=== PATIENT | female | born 1970 | race Caucasian/White ===

== ENCOUNTER → 2016-04-08 | Outpatient (CLI) | payer BC ==
[~2016-04-08] MED LIST: ADVAIR 250/5028 PUFF IN; ADVAIR DISK28 PUFFS IN; ALBUTEROL-200 PUFFS/ IH; ALBUTEROL2.5 MG/NEB IN; ALDACTONE 25MG25 MG PO; ATIVAN GENERIC0.5 MG PO; AZOR 10 MG-40 M1 TAB PO; BACLOFEN20 MG PO; BACTRIM DS 8001 TAB PO; BISOPROLOL 5MG T5 MG PO; CIPRO 250MG TA250 MG PO; CIPRO 500MG TA500 MG PO; CIPROFLOXACIN500 MG PO; DAYQUIL COLD/FL1 SGL PO; DOXYCYCLINE MO100 MG PO; EXFORGE 5 MG-161 TAB PO; EXFORGE 5 MG-321 TAB PO; HYDROCHLOROTH12.5 M1 PO; HYDROCHLOROTHIA25 M1 PO; IBUPROFEN800 MG PO; IPRATROPIUM BROM3 M1 IH; KEFLEX 500MG.500 MG PO; LISINOPRIL 10MG10 MG PO; LISINOPRIL40 MG PO; LORTAB 5/500 501 TAB PO; MEDROL 4MG. DOSE4 MG PO; NAPROSYN 500MG500 MG PO; NAPROXEN DELAY500 MG PO; NAPROXEN SODIU220 MG PO; PHENERGAN 25MG.25 M1 PO; PHENERGAN VC +120 ML PO; POTASSIUM CHLO20 ME2 PO; PREDNISONE 10MG10 MG PO; PREDNISONE 20MG20 MG PO; PREDNISONE50 MG PO; RANITIDINE75 MG PO; ROBITUSSIN DM S10 ML NG; ROBITUSSIN100 MG/5 M PO; RT-ACCUNEB S3 ML/AMP IN; SERTRALINE 50MG50 MG PO; TESSALON PERLE100 MG PO; TRAMADOL 50MG T50 M1 PO; Tramadol HCl50 MG PO; VIBRAMYCIN 100100 MG PO; ZITHROMAX Z-PA250 M1 PO; ZYRTEC 10MG TAB10 MG PO
== END ==
LOC: LAB 14:20
DX: R07.9 Chest pain, unspecified (principal)

== ENCOUNTER → 2016-08-11 | Outpatient (CLI) | payer BC ==
--- NOTE | 2016-08-11 16:05 | RADIOLOGY REPORT PS360 ---
US RUQ-(ABD LTD)1ORGAN/QUAD/FU HISTORY: RUQ PAIN,NAUSEA ORDERING PHYSICIAN: Matthew Saini MD PATIENT AGE: 45 years COMPARISON: None FINDINGS: PANCREAS:Unremarkable. No obvious mass or abnormal fluid collection. No ductal dilatation LIVER:No focal liver lesions demonstrated. Homogeneous echogenicity. No intrahepatic biliary ductal dilatation evident RIGHT KIDNEY:Unremarkable. Normal size and echogenicity. No hydronephrosis GALLBLADDER:Wall echo shadow sign present consistent with gallbladder filled with stones. No wall thickening, pericholecystic fluid, or biliary dilatation. Common bile duct is 4 mm. IMPRESSION: Wall echo shadow sign consistent with gallbladder filled with stones. No biliary dilatation
== END ==
LOC: RAD 08:05
DX: R10.11 Right upper quadrant pain (principal); R11.0 Nausea

== ENCOUNTER → 2016-11-07 | Outpatient (CLI) | payer BC ==
[2016-11-07 11:31] LABS: HEMOGLOBIN 10.7 g/dL (12.2-16.2); LYMPH # 2.1 K/mm3 (0.7-4.5); LYMPH % 27.3 % (10-50.0)
--- NOTE | 2016-11-07 12:00 | RADIOLOGY REPORT PS360 ---
CHEST(2 VIEWS-NOT PORTABLE) HISTORY: COUGH, ANEMIA, THORACIC PAIN ORDERING PHYSICIAN: Matthew Saini MD PATIENT AGE: 46 years COMPARISON: 10/05/2016 FINDINGS: There is borderline cardiomegaly without failure with mild prominence of the left ventricle. A loop recorder device is now present. No evidence of CHF. Lungs are clear of acute infiltrate. No acute bony anomalies. IMPRESSION: 1. Mild cardiomegaly with loop recorder device present. 2. Otherwise negative chest
== END ==
LOC: LAB 11:12
PROVIDERS: Internal Medicine
DX: M54.6 Pain in thoracic spine (principal); R05 Cough; D64.9 Anemia, unspecified

== ENCOUNTER → 2017-01-17 | Outpatient (CLI) | payer BC ==
[~2017-01-17] MED LIST changes: +MECLIZINE HYDRO25 M2 PO
== END ==
LOC: LAB 15:37
DX: N39.0 Urinary tract infection, site not specified (principal)

== ENCOUNTER → 2017-01-20 | Outpatient (CLI) | payer BC ==
--- NOTE | 2017-01-20 13:35 | RADIOLOGY REPORT PS360 ---
CT ABD PELVIS W/O CONTRAST CLINICAL INDICATION: RT FLANK PAIN,HEMATURIA,N/V ORDERING PHYSICIAN: Matthew Saini MD PATIENT AGE: 46 years COMPARISON: 05/16/2010 TECHNIQUE: Axial images obtained with sagittal and coronal reformats. PROCEDURE: Oral Contrast: None IV Contrast: None . FINDINGS: Lung bases are clear. There is been a prior cholecystectomy. No focal liver lesions. There is mild splenomegaly at 15's the meters. The adrenal glands and pancreas are unremarkable. There are bilateral renal calculi with an 8 mm stone in the upper pole the right kidney. There are at least 3 stones in the mid and lower pole the left kidney the largest in the lower pole measuring 6 mm. No hydronephrosis. No ureteral or urinary bladder calculi. No intestinal obstruction or free air. Unremarkable appendix with no evidence of diverticulitis. No pelvic mass or abnormal fluid collection. No acute bony anomalies. Gas is present within the vaginal vault and may be within a tampon. IMPRESSION: 1. Nonobstructing bilateral renal calculi. 2. Other nonacute findings as described above
== END ==
LOC: RAD 12:52
DX: R10.9 Unspecified abdominal pain (principal); R11.2 Nausea with vomiting, unspecified; R31.0 Gross hematuria; N20.0 Calculus of kidney

== ENCOUNTER 2017-01-22 21:52 | Emergency (ER) | payer BC ==
[~2017-01-22] VITALS: Ht 160 cm; Wt 113.4 kg
[~2017-01-22 21:52] MED LIST changes: -MECLIZINE HYDRO25 M2 PO
--- OUTSIDE RECORDS SUMMARY | 2017-01-22 22:21 | External Medical Summary Rpt | CCD ---
Author Author , MALISSA Organization MALISSA Address Unknown Phone [email or web address] Care Team Providers Care Program Arranger Name Role Phone BIBI RAMIREZ, ASHLEY, Unavailable Unavailable HUGO GARCIA, Unavailable Unavailable [facility] Unavailable [facility] ASHLY SOUZA, Unavailable Unavailable ASHLY SOUZA MD, Unavailable Unavailable MITCHELL Jacobs MD, JR F, MITCHELL DIAL JR Purpose Continuity of Care Document - 05-09-2007 through 2016 Problems Code Diagnosis DOS Provider Status 401.9 401.9 11-06-2012 [facility] 493.90 493.90 11-06-2012 [place] ASTHMA, [facility] 786.59 786.59 11-06-2012 [place] CHEST PAIN [facility] [address] OBSTRUCTIVE 10-31-2007 [facility] CHRONIC ASHLY EMD BRONCHITIS WITH EXACERBATIO N 2550 CUSHINGS 10-15-2007 [facility] SYNDROME ASHLY EMD 5990 URINARY 10-15-2007 [facility] INFECTION HOSPITAL SITE NOT PROF SERV SPECIFIED 8500 CONCUSSION 10-15-2007 [facility] LOSS OF HOSPITAL CONSCIOUSNE PROF SERV SS 4019 UNSPECIFIED 10-08-2007 [facility] N PROF SERV 4959 UNSPECIFIED 10-08-2007 [facility] ALLERGIC ASHLY EMD ALVEOLITIS AND PNEUMONITIS 7242 LUMBAGO 10-08-2007 [facility] PROF SERV 46881 SHORTNESS 10-08-2007 [facility] PROF SERV 9620 POISONING 10-02-2007 [facility] BY ADRENAL ASHLY EMD CORTICAL STEROIDS 52203 OTHER 09-25-2007 [facility] FAT[facility] 7831 ABNORMAL 09-25-2007 [facility] 58620 GLUCOCORTIC 09-24-2007 [facility] OID ASHLY EMD DEFICIENCY 65288 ABDOMINAL 09-17-2007 [facility] UNSPECIFIED INC SITE 4011 ESSENTIAL 09-10-2007 [facility] HYPERTENSIO ASHLY EMD N, BENIGN 5920 CALCULUS OF 09-05-2007 [facility] 7880 RENAL COLIC 09-03-2007 [facility] ASHLY EMD 97053 OTHER ACUTE 08-13-2007 [facility] VE PAIN PROF SERV 61834 ASTHMA, 08-13-2007 [facility] UNSPECIFIED ASHLY EMD , UNSPECIFIED STATUS 69239 ABDOMINAL 08-13-2007 [facility] PAIN, LEFT [facility] QUADRANT PROF SERV 61642 CHEST PAIN 08-10-2007 [facility]PECIFIED [facility] 50433 MORBID 08-07-2007 [facility] 91172 CHRONIC 08-07-2007 [facility] DUE TO [facility] TRAUMA INC 5921 CALCULUS OF 08-07-2007 [facility] URETER ASHLY EMD 5933 STRICTURE 08-07-2007 [facility] URETER INC 79630 PAINFUL 08-07-2007 [facility] RESPIRATION ASHLY EMD 4660 ACUTE 06-27-2007 [facility] BRONCHITIS ASHLY EMD 496 CHRONIC 06-15-2007 [facility] AIRWAY ASHLY EMD OBSTRUCTION NEC 62753 OBESITY, 05-09-2007 [facility]PEC[facility]IED [facility] 32251 ASTHMA 05-09-2007 [facility] UNSPECIFIED ASHLY EMD WITH STATUS ASTHMATICUS 30462 OTHER CHEST 05-09-2007 [facility]IN [facility] 37859 NONSPECIFIC 05-09-2007 [facility] ABNORMAL [facility] ELECTROCARD INC IOGRAM Allergies, Adverse Reactions, Alerts Type Drug Allergy Food Allergy Adverse Reaction to Substance Substance Reaction Severity Aspirin S-DIFF. BREATHING Severe Bee Venom Unknown Unknown SUCRALOSE (FOOD) Unknown Unknown Medications Na ND Rx Da Fi Fi Am Da Di Ph RX Ph St me C No te ll ll ou ys ag ar # ys at rm s nt no ma ic us Or Da si cy ia de te s n re d KE 00 08 0 No TO 40 -0 RO 93 5- Lo LA 79 20 ng C 50 13 er 30 1 Ac MG ti /M ve L AL Vital Signs 11-06-2012 00:11 Name Value Interpretat Reference Comment ion Range BP 78 mm[Hg] Diastolic BP Systolic 140 mm[Hg] Heart 68 /min Rate/Pulse O2% 97 % Respiratory 18 /min Rate 11-05-2012 23:30 Name Value Interpretat Reference Comment ion Range BP 95 mm[Hg] Diastolic BP Systolic 155 mm[Hg] Heart 74 /min Rate/Pulse O2% 100 % Respiratory 20 /min Rate Results Labs Lab Lab Date Result Refere Interp Status Commen Order Detail nces retati t Range on Urinalysis dipstick W Reflex Microscopic panel in Urine (10-05-2016 15:14) Bacteri 2+ O complet a 017 ed [Presen 15:14 ce] in Urine sedimen t by Light microsc opy Mucus 2+ OCC complet [Presen 017 ed ce] in 15:14 Urine sedimen t by Light microsc opy Erythro 3-5 0 complet cytes 017 ed [Presen 15:14 ce] in Urine sedimen t by Light microsc opy Epithel 5-10 0#/hp complet ial 017 f - ed cells.s 15:14 5#/hp quamous f [Presen ce] in Urine sedimen t by Microsc opy high power field Leukocy 5-10 O complet [place] 017 wbc/hpf ed [#/volu 15:14 me] in Urine Urinalysis dipstick W Reflex Microscopic panel in Urine (10-05-2016 15:14) Appeara CLEAR CLEAR complet nce of 017 ed Urine 15:14 Bilirub NEGATIV NEG complet in 017 E ed [Presen 15:14 ce] in Urine by Test strip Erythro 2+ NEG Abnorma complet cytes 017 l ed [Presen 15:14 ce] in Urine Color YELLOW YELLOW complet of 017 ed Urine 15:14 Ketones NEGATIV NEG complet 017 E ed [Presen 15:14 ce] in Urine by Automat ed test strip Mucus 1+ NEG Abnorma complet [Presen 017 l ed ce] in 15:14 Urine sedimen t by Light microsc opy Nitrite NEGATIV NEG complet 017 E ed [Presen 15:14 ce] in Urine by Test strip Urobili 0.2 NEG complet nogen 017 ed [Presen 15:14 ce] in Urine by Test strip COMPREHENSIVE METABOLIC PANEL (11-05-2012 22:43) Glucose 05 105 74-106 complet 013 mg/dL ed Bld-mCn 22:43 c BUN 12 7-18 complet Bld-mCn 013 mg/dL ed c 22:43 Creat 1.2 0.6-1.0 complet SerPl-m 013 mg/dL ed Cnc 22:43 ESTIMAT 105 50-200 complet ED 013 ML/MIN ed CREATIN 22:43 INE CLEARAN CE GFR 50 59- complet (ESTIMA 013 ML/MIN ed VANESSA) 22:43 Sodium 141 136-145 complet SerPl-s 013 mmoL/L ed Cnc 22:43 Potassi 3.4 3.5-5.1 complet um 013 mmoL/L ed SerPl-s 22:43 Cnc Chlorid 106 98-107 complet e 013 mmoL/L ed SerPl-s 22:43 Cnc CO2 28 21.0-32 complet SerPl-s 013 mmoL/L .0 ed Cnc 22:43 Calcium 8.0 8.5-10. complet 013 mg/dL 1 ed SerPl-m 22:43 Cnc Prot 7.2 6.4-8.2 complet SerPl-m 013 gm/dL ed Cnc 22:43 Albumin 3.5 3.4-5.0 complet 013 gm/dL ed SerPl-m 22:43 Cnc Globuli 3.7 1.3-3.2 complet n 013 gm/dL ed Ser-mCn 22:43 c Albumin 0.9 UNK 1.1-1.8 complet /Glob 013 ed SerPl-m 22:43 Rto Bilirub 0.3 0.2-1.0 complet 013 mg/dL ed SerPl-m 22:43 Cnc AST 10 U/L 15-37 complet SerPl-c 013 ed Cnc 22:43 ALT 36 U/L 30-65 complet SerPl-c 013 ed Cnc 22:43 ALP 08-05-2 111 U/L 50-136 complet SerPl-c 013 ed Cnc 22:43 Amylase SerPl-cCnc (11-05-2012 22:43) Amylase -05-2 61 U/L 25-115 complet 013 ed SerPl-c 22:43 Cnc LIPASE (11-05-2012 22:43) LIPASE 05-2 156 U/L 73-393 complet 013 ed 22:43 CBC with AUTO DIFF (11-05-2012 22:43) WBC # 08-05-2 8.9 4.8-10. complet Bld 013 K/MM3 8 ed Auto 22:43 RBC # 08-05-2 4.54 4.2-5.4 complet Bld 013 M/mm3 ed Auto 22:43 Hgb 08-05-2 12.5 12.2-16 complet Bld-mCn 013 g/dL .2 ed c 22:43 Hct Fr 11-05-2 38.0 % 37.0-47 complet Bld 013 .0 ed 22:43 MCV RBC 08-05-2 83.8 fl 82.2-97 complet 013 .8 ed 22:43 MCH RBC 08-05-2 27.5 pg 27-31.2 complet Qn 013 ed Auto 22:43 MEAN -05-2 32.9 31.8-35 complet CORPUSC 013 g/dl .4 ed ULAR 22:43 HGB CONC RDW RBC 08-05-2 14.4 % 11.5-17 complet Auto 013 .5 ed 22:43 Platele -05-2 295 142-424 complet t Bld 013 K/mm3 ed Ql 22:43 Manual MEAN 05-2 7.8 fl 7.4-10. complet PLATELE 013 4 ed T 22:43 VOLUME Granulo -05-2 60.7 % 37.0-80 complet cytes 013 .0 ed Fr Bld 22:43 Auto LYMPH % 08-05-2 31.9 % 10-50.0 complet 013 ed 22:43 Monocyt 08-05-2 5.1 % 1.7-9.3 complet es Fr 013 ed Bld 22:43 Auto Eosinop -05-2 1.4 % 0.1-12. complet hil Fr 013 0 ed Bld 22:43 Auto Basophi 08-05-2 0.8 % 0.1-2.0 complet ls Fr 013 ed Bld 22:43 Auto Granulo 08-05-2 5.4 1.8-7.8 complet cytes # 013 K/mm3 ed Bld 22:43 Auto Lymphoc 08-05-2 2.8 0.7-4.5 complet ytes Fr 013 K/mm3 ed Bld 22:43 Auto Monocyt 08-05-2 0.5 0.1-1.0 complet es # 013 K/mm3 ed Bld 22:43 Auto Eosinop 08-05-2 0.1 0.0-0.4 complet hil # 013 K/mm3 ed Bld 22:43 Auto Basophi 08-05-2 0.1 0-0.2 complet ls # 013 K/MM3 ed Bld 22:43 Auto Procedures Procedure DOS Code Location Performer Comment 3D 14016 [facility] PETER RENDERING 8 [facility] W/INTERP INC INC & POSTPROCE SS SUPERVISI ON ECG 78160 [facility] PET[facility] ROUTINE 8 [facility] ECG INC INC W/LEAST 12 LDS TRCG ONLY W/O I&R URNLS DIP 54422 [facility] PETER 8 [facility] STICK/TAB INC INC LET REAGENT AUTO MICROSCOP Y BLOOD 84399 [facility] PET[facility] COUNT 8 [facility] COMPLETE INC INC AUTO&AUTO DIFRNTL WBC HEPATIC 13892 [facility] PETER FUNCTION 8 [facility] PANEL INC INC ECG 47627 [facility] SLOANSON, ROUTINE [address] [facility] ECG HOSPITAL W/LEAST PROF SERV 12 LDS I&R ONLY RHYTHM 72137 [facility] PETER ECG 1-3 8 [facility] LEADS INC INC TRACING ONLY W/O I&R URINE 34124 [facility] PETER 8 [facility] TEST INC [place] [address] [facility] PETER HEAD/BRAI 8 [facility] N W/O INC INC CONTRAST MATERIAL CULTURE 81957 [facility] BACTERIAL 8 [facility]OS[facility] INC INC QUANTTATI VE COLONY COUNT URINE BASIC 94155 [facility] METABOLIC 8 [facility] PANEL INC INC CALCIUM TOTAL XTRNL ECG 43139 [facility] TARAMIHamida 8 [facility] MITCHELL Cruz RHYTHM PROF SERV W/I&R UP TO 48 HRS URNLS DIP 62999 [facility] PETER 8 [facility] STICK/TAB INC INC LET REAGENT AUTO MICROSCOP Y COMPREHEN 37994 [facility] SIVE 8 [facility] METABOLIC INC INC PANEL HEMOGLOBI 88231 [facility] N 8 [facility] GLYCOSYLA INC INC VANESSA A1C GLUCOSE 12562 [facility] TOLERANCE 8 [facility] TEST GTT INC INC 3 SPECIMENS CORTISOL 80569 [facility] PETER TOTAL 8 [place] [address] [facility] THYROID 8 [facility] STIMULATI INC INC NG HORMONE TSH CULTURE 40856 [facility] BACTERIAL 8 [facility] INC INC QUANTTATI VE COLONY COUNT URINE LIPID 87845 [facility] PANEL 8 [facility] INC INC BASIC 75747 [facility] METABOLIC 8 [facility] [place] [address] [facility] THYROID 8 [facility] STIMULATI INC INC NG HORMONE TSH TRANSFERA 22698 [facility] SE 8 [facility] ALANINE INC INC AMINO ALT SGPT CORTISOL 40730 ROMEGÓMEZ PETER TOTAL 8 [place] [address] [facility] PET[facility] IRON 8 [facility] INC INC IRON 02930 [facility] BINDING 8 [facility] CAPACITY INC INC BLOOD 63484 [facility] FOOTEON COUNT 8 [facility] COMPLETE INC INC AUTO&[place] [address] [facility] ABDOMEN 8 [facility] W/O INC INC CONTRAST MATERIAL 3D 32770 [facility] PET[facility] RENDERING 8 [facility] INC INC W/INTERP& POSTPROC DIFF WORK STATION CT PELVIS 75717 [facility] PETER W/O 8 [facility] CONTRAST INC INC MATERIAL EXTERNAL 38090 [facility] ECG 8 [facility] SCANNING INC INC ANALYSIS REPORT BASIC 68457 [facility] FOOTEON METABOLIC 8 [facility] [place] [address] [facility] PETER TROPONIN 8 [facility] QUANTITAT INC INC STEFFI BLOOD 57550 [facility] PETER COUNT 8 [facility] COMPLETE INC INC AUTO&AUTO DIFRNTL WBC XTRNL ECG 67775 [facility] PETER & 48 HR 8 [facility] RECORDING INC INC CREATINE 03273 R[facility] PETER KINASE 8 [facility] [place] [address] [facility] ANGIOGRAP 8 [facility] HY CHEST INC INC W/CONTRAS T/NONCONT RAST FIBRIN 96586 [facility] PETER DGRADJ 8 [facility] PRODUCTS INC INC D-DIMER QUAL/SEMI [facility] 13400 [facility] SOUZA, DISCHARGE 8 ASHLY ASHLY E DAY EMD MANAGEMEN T 30 MIN/< ECG 60935 [facility] PETER ROUTINE 8 [facility] ECG INC INC W/LEAST 12 LDS TRCG ONLY W/O I&R CREATINE 12886 [facility] PEETR KINASE MB 8 [facility] FRACTION INC INC ONLY SBSQ [address] CARE/DAY EMD 25 MINUTES SBSQ 35742 [facility] 8 ASHLY ASHLY E CARE/DAY EMD 25 MINUTES URETEROSC 5631 [facility] PETER OPY 8 [facility] INC INC URETERAL 598 [facility] PETER CATHETERI 8 [facility] ZATION INC INC TRNSURETH 560 [facility] PETER REMOVAL 8 [facility] OBST FROM INC INC URETER&RE NAL PELV INITIAL 66531 [facility] 8 ASHLY ASHLY E CARE/DAY EMD 50 MINUTES INITIAL 10074 [facility] 8 ASHLY ASHLY E ON EMD CARE/DAY 50 MINUTES HOSPITAL 41525 [facility] SOUZA, [facility] 8 ASHLY ASHLY E DAY EMD MANAGEMEN T 30 MIN/< SBSQ 32319 [facility] SOUZA, [facility] 8 ASHLY ASHLY E CARE/DAY EMD 25 MINUTES SBSQ 79235 [facility] SOUZA, [facility] 8 ASHLY ASHLY E CARE/DAY EMD 25 MINUTES INITIAL 90367 [facility] SOUZA, [facility] 8 ASHLY ASHLY E CARE/DAY EMD 50 MINUTES Encounters Encounter Start End Date Code Location Performer Type Date Emergency BETSY Baca MD (ER) 3 23:06 3 00:12 [facility] OFFICE 48379 [facility] 8 8 ASHLY ASHLY E T VISIT EMD 15 MINUTES EMERGENCY 95214 [facility] 8 8 [facility] DEPARTMEN INC T VISIT MODERATE SEVERITY OFFICE 36620 [facility] 8 8 ASHLY ASHLY E T VISIT EMD 15 MINUTES [facility] OUTPATIEN INC T [facility] OUTPATIEN INC T OFFICE 31843 [facility] 8 8 ASHLY ASHLY E T VISIT EMD 15 MINUTES OFFICE 66357 [facility] 8 8 ASHLY ASHLY E T VISIT EMD 15 MINUTES [facility] OUTPATIEN [facility] T [facility] OUTPATIEN INC T OFFICE 26172 [facility] 8 8 ASHLY ASHLY E T VISIT EMD 15 MINUTES [facility] OUTPATIEN INC T OFFICE 38944 [facility] 8 8 ASHLY ASHLY E T VISIT EMD 15 MINUTES [facility] - 8 8 [facility] OUTPATIEN INC T EMERGENCY 81292 [facility] 8 8 [facility] V[facility]/M INOR PROB EMERGENCY 55081 [facility] RAMIREZ, 8 8 [facility] T VISIT PROF SERV LOW/MODER SEVERITY OFFICE 86828 [facility] 8 8 ASHLY ASHLY E T VISIT EMD 15 MINUTES [facility] - 8 8 [facility] OUTPATIEN INC T EMERGENCY 62088 [facility] DEPT 8 8 [facility] VISIT INC HIGH SEVERITY& THREAT FUN [facility]OSP[facility] - 8 8 [facility] INPATIENT INC OFFICE 52328 [facility] 8 8 ASHLY ASHLY E T VISIT EMD 15 MINUTES OFFICE 83582 [facility] 8 8 ASHLY ASHLY E T VISIT EMD 15 MINUTES OFFICE 76972 [facility] 8 8 ASHLY ASHLY E T VISIT EMD 15 MINUTES [facility] - 8 8 [facility] INPATIENT INC
--- OUTSIDE RECORDS SUMMARY | 2017-01-22 22:21 | External Medical Summary Rpt | CCD ---
Author Author , MALISSA Organization MALISSA Address Unknown Phone ..[facility] Care Team Providers Care Rn House Supervisor Name Role Phone BIBI RAMIREZ, ASHLEY, Unavailable Unavailable HUGO GARCIA, Unavailable Unavailable [facility]O [facility] Unavailable Unavailable [facility] ASHLY SOUZA, Unavailable Unavailable ASHLY SOUZA MD, Unavailable Unavailable MITCHELL Jacobs MD, JR F, MITCHELL DIAL JR Purpose Continuity of Care Document - 05-09-2007 through 2016 Problems Code Diagnosis DOS Provider Status 401.9 401.9 11-06-2012 [facility] 493.90 493.90 11-06-2012 [place] ASTHMA, [facility] 786.59 786.59 11-06-2012 [place] CHEST PAIN [facility] 87274 OBSTRUCTIVE 10-31-2007 [facility] CHRONIC ASHLY EMD BRONCHITIS WITH EXACERBATIO N 2550 CUSHINGS 10-15-2007 [place] SYNDROME ASHLY EMD 5990 URINARY 10-15-2007 [facility] IN[facility]CTION HOSPITAL SITE NOT PROF SERV SPECIFIED 8500 CONCUSSION 10-15-2007 [facility] LOSS OF HOSPITAL CONSCIOUSNE PROF SERV SS 4019 UNSPECIFIED 10-08-2007 [facility] N PROF SERV 4959 UNSPECIFIED 10-08-2007 [place] ALLERGIC ASHLY EMD ALVEOLITIS AND PNEUMONITIS 7242 LUMBAGO 10-08-2007 [facility] PROF SERV 29057 SHORTNESS 10-08-2007 [facility] PROF SERV 9620 POISONING 10-02-2007 [place] BY ADRENAL ASHLY EMD CORTICAL STEROIDS 59068 OTHER 09-25-2007 [facility] FATIGUE INC 7831 ABNORMAL 09-25-2007 [facility] WE[facility] GAIN [facility] INC 35181 GLUCOCORTIC 09-24-2007 [place] OID ASHLY EMD DEFICIENCY 40284 ABDOMINAL 09-17-2007 [facility] TENDERNESS [facility] UNSPECIFIED INC SITE 4011 ESSENTIAL 09-10-2007 [place] HYPERTENSIO ASHLY EMD N, BENIGN 5920 CALCULUS OF 09-05-2007 [facility]IDNEY [facility] INC 7880 RENAL COLIC 09-03-2007 [place] ASHLY EMD 85801 OTHER ACUTE 08-13-2007 [facility] 06917 ASTHMA, 08-13-2007 [place] UNSPECIFIED ASHLY EMD , UNSPECIFIED STATUS 80426 ABDOMINAL 08-13-2007 [place] PA[facility], LEFT [facility] PROF SERV 75252 CHEST PAIN 08-10-2007 [facility] UNSPECIFIED [facility] INC 22113 MORBID 08-07-2007 [facility] OBESITY [facility] INC 50800 CHRONIC 08-07-2007 [facility] DUE TO [facility] TRAUMA INC 5921 CALCULUS OF 08-07-2007 [place] URETER ASHLY EMD 5933 STRICTURE 08-07-2007 [facility] OR [facility] OF URETER INC 97695 PAINFUL 08-07-2007 [place] RESPIRATION ASHLY EMD 4660 ACUTE 06-27-2007 [place] BRONCHITIS ASHLY EMD 496 CHRONIC 06-15-2007 [facility] AIRWAY ASHLY EMD OBSTRUCTION NEC 67454 OBESITY, 05-09-2007 [facility] UNSPECIFIED [facility] INC 63240 ASTHMA 05-09-2007 [facility] UNSPECIFIED ASHLY EMD WITH STATUS ASTHMATICUS 63927 OTHER CHEST 05-09-2007 [facility] PAIN [facility] INC 82778 NONSPECIFIC 05-09-2007 [facility] ABNORMAL [facility] ELECTROCARD [...] Procedure DOS Code Location Performer Comment 3D 04638 [facility] RENDERING 8 [facility] W/INTERP INC INC & POSTPROCE SS SUPERVISI ON ECG 94447 [facility] ROUTINE 8 [facility] ECG INC INC W/LEAST 12 LDS TRCG ONLY W/O I&R URNLS DIP 73577 [facility] PETER 8 [facility] STICK/TAB INC INC LET REAGENT AUTO MICROSCOP Y BLOOD 57941 [facility] COUNT 8 [facility] COMPLETE INC INC AUTO&AUTO DIFRNTL WBC HEPATIC 48843 [facility] FUNCTION 8 [facility] PANEL INC INC ECG 53821 [facility] SLOANSON, ROUTINE 8 [facility] ECG HOSPITAL W/LEAST PROF SERV 12 LDS I&R ONLY RHYTHM 21721 [facility] PETER ECG 1-3 8 [facility] LEADS INC INC TRACING ONLY W/O I&R URINE 08611 [facility] PETER 8 [facility] TEST INC [place] [address] [facility] PETER HEAD/BRAI 8 [facility] MEM HOSP N W/O INC INC CONTRAST MATERIAL CULTURE 98313 [facility] PETER BACTERIAL 8 [facility] MEM HOSP INC INC QUANTTATI VE COLONY COUNT URINE BASIC 57779 R[facility] PET[facility] METABOLIC 8 MEM H[facility] MEM HOSP PANEL INC INC CALCIUM TOTAL XTRNL ECG 23725 [facility] TARAMIHamida 8 [facility] MITCHELL Cruz RHYTHM PROF SERV W/I&R UP TO 48 HRS URNLS DIP 99732 [facility] PETER 8 [facility] MEM HOSP STICK/TAB INC INC LET REAGENT AUTO MICROSCOP Y COMPREHEN 10749 [facility] SIVE 8 [facility]OS[facility] METABOLIC INC INC PANEL HEMOGLOBI 53841 [facility] PETER N 8 MEM HOSP MEM HOSP GLYCOSYLA INC INC VANESSA A1C GLUCOSE 81730 [facility] PET[facility] TOLERANCE 8 [facility]OS[facility] TEST GTT INC INC 3 SPECIMENS CORTISOL 96227 [facility] PETER TOTAL 8 [place] [address] [facility] THYROID 8 [facility] MEM HOSP STIMULATI INC INC NG HORMONE TSH CULTURE 18332 R[facility] BACTERIAL 8 [facility] MEM [facility]OS[facility] INC INC QUANTTATI VE COLONY COUNT URINE LIPID 36049 [facility] PANEL 8 [facility] MEM HOS[facility] INC INC BASIC 58288 R[facility] PET[facility] METABOLIC 8 [facility] [place] [address] [facility] PET[facility] THYROID 8 MEM H[facility] MEM HOSP STIMULATI INC INC NG HORMONE TSH TRANSFERA 02284 [facility] PET[facility] SE 8 [facility] H[facility] MEM HOSP ALANINE INC INC AMINO ALT SGPT CORTISOL 90800 ROMEGÓMEZ PETER TOTAL 8 [place] [address] [facility] PETER IRON 8 [facility] H[facility] MEM [facility]OS[facility] INC INC IRON 17821 [facility] PET[facility] BINDING 8 MEM H[facility] MEM HOSP CAPACITY INC INC BLOOD 35234 [facility] FOOTEON COUNT 8 MEM [facility] MEM [facility]OSP COMPLETE INC INC AUTO&[place] [address] [facility] ABDOMEN 8 MEM H[facility] W/O INC INC CONTRAST MATERIAL 3D 91931 [facility] PETER RENDERING 8 MEM HOS[facility]OS[facility] INC INC W/INTERP& POSTPROC DIFF WORK STATION CT PELVIS 44820 [facility] W/O 8 [facility] CONTRAST INC INC MATERIAL EXTERNAL 74504 [facility] ECG 8 [facility] MEM HOSP SCANNING INC INC ANALYSIS REPORT BASIC 03941 [facility] FOOTEON METABOLIC 8 [facility] MEM HOSP [place] [address] ORME PETER TROPONIN 8 [facility] QUANTITAT INC INC STEFFI BLOOD 78023 [facility] PET[facility] COUNT 8 [facility] COMPLETE INC INC AUTO&AUTO DIFRNTL WBC XTRNL ECG 01078 [facility] PETER & 48 HR 8 [facility] RECORDING INC INC CREATINE 73818 R[facility] PETER KINASE 8 [facility] [place] [address] [facility] ANGIOGRAP 8 [facility] HY CHEST INC INC W/CONTRAS T/NONCONT RAST FIBRIN 73320 [facility] PETER DGRADJ 8 [facility] PRODUCTS INC INC D-DIMER QUAL/SEMI [facility] 87487 [facility] SOUZA, DISCHARGE 8 ASHLY ASHLY E DAY EMD MANAGEMEN T 30 MIN/< ECG 51463 [facility] PETER ROUTINE 8 [facility] ECG INC INC W/LEAST 12 LDS TRCG ONLY W/O I&R CREATINE 03725 [facility] PETER KINASE MB 8 [facility] FRACTION INC INC ONLY SBSQ [address] CARE/DAY EMD 25 MINUTES SBSQ 88007 [facility] 8 ASHLY ASHLY E CARE/DAY EMD 25 MINUTES URETEROSC 5631 [facility] OPY 8 [facility] MEM HOSP INC INC URETERAL 598 [facility] PET[facility] CATHETERI 8 [facility] ZATION INC INC TRNSURETH 560 [facility] PETER REMOVAL 8 [facility] OBST FROM INC INC URETER&RE NAL PELV INITIAL 14196 [facility] 8 ASHLY ASHLY E CARE/DAY EMD 50 MINUTES INITIAL 51484 [facility] 8 ASHLY ASHLY E ON EMD CARE/DAY 50 MINUTES HOSPITAL 92704 [facility] SOUZA, [facility] 8 ASHLY ASHLY E DAY EMD MANAGEMEN T 30 MIN/< SBSQ 13570 [facility] SOUZA, [facility] 8 ASHLY ASHLY E CARE/DAY EMD 25 MINUTES SBSQ 97645 HARLEY SOUZA, [facility] 8 ASHLY ASHLY E CARE/DAY EMD 25 MINUTES INITIAL 93610 HARLEY SOUZA, [facility] 8 ASHLY ASHLY E CARE/DAY EMD 50 MINUTES Encounters Encounter Start End Date Code Location Performer Type Date Emergency BETSY Baca MD (ER) 3 23:06 3 00:12 [facility] OFFICE 10536 [facility] 8 8 ASHLY ASHLY E T VISIT EMD 15 MINUTES EMERGENCY 61756 [facility] 8 8 [facility] DEPARTMEN INC T VISIT MODERATE SEVERITY OFFICE 46334 [facility] 8 8 ASHLY ASHLY E T VISIT EMD 15 MINUTES [facility] OUTPATIEN INC T [facility] 8 [facility] OUTPATIEN INC T OFFICE 86558 [facility] 8 8 ASHLY ASHLY E T VISIT EMD 15 MINUTES OFFICE 84220 [facility] 8 8 ASHLY ASHLY E T VISIT EMD 15 MINUTES [facility] - 8 8 [facility] OUTPATIEN INC T [facility] - [facility] 8 [facility] OUTPATIEN INC T OFFICE 41680 [facility] 8 8 ASHLY ASHLY E T VISIT EMD 15 MINUTES [facility] - 8 8 [facility] OUTPATIEN INC T OFFICE 74105 [facility] 8 8 ASHLY ASHLY E T VISIT EMD 15 MINUTES HOSPITAL [facility] - 8 8 [facility] OUTPATIEN INC T EMERGENCY 90212 [facility] 8 8 [facility] V[facility]/M INOR PROB EMERGENCY 79361 [facility] RAMIREZ, [address] [facility] T VISIT PROF SERV LOW/MODER SEVERITY OFFICE 51910 [facility] 8 8 ASHLY ASHLY E T VISIT EMD 15 MINUTES HOSPITAL [facility] - 8 8 [facility] OUTPATIEN INC T EMERGENCY 73117 [facility] DEPT 8 8 [facility] VISIT INC HIGH SEVERITY& THREAT FUN HOSPITAL [facility] - 8 8 [facility] INPATIENT INC OFFICE 14995 [facility] 8 8 ASHLY ASHLY E T VISIT EMD 15 MINUTES OFFICE 39397 [facility] 8 8 ASHLY ASHLY E T VISIT EMD 15 MINUTES OFFICE 14390 [facility] 8 8 ASHLY ASHLY E T VISIT EMD 15 MINUTES HOSPITAL [facility] - 8 8 [facility] INPATIENT INC
--- OUTSIDE RECORDS SUMMARY | 2017-01-22 22:23 | External Medical Summary Rpt | CCD ---
Author Author , MALISSA LEONARDO Address Unknown Phone [email or web address] Care Team Providers Care System Support Technician Name Role Phone BIBI RAMIREZ, ASHLEY, Unavailable Unavailable HUGO GARCIA, Unavailable Unavailable [facility]EDO [facility] Unavailable Unavailable INC, [facility] ASHLY SOUZA, Unavailable Unavailable ASHLY SOUZA JR, WILLIAM Unavailable Unavailable F, MITCHELL DIAL JR Purpose Continuity of Care Document - 05-09-2007 through 2016 Problems Code Diagnosis DOS Provider Status 23511 OBSTRUCTIVE 10-31-2007 [place] CHRONIC ASHLY EMD BRONCHITIS WITH EXACERBATIO N 2550 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 INFECTION HOSPITAL SITE NOT PROF SERV SPECIFIED 8500 CONCUSSION 10-15-2007 [facility] CONSCIOUSNE PROF SERV SS 4019 UNSPECIFIED 10-08-2007 [facility] N PROF SERV 4959 UNSPECIFIED 10-08-2007 [place] ALLERGIC ASHLY EMD ALVEOLITIS AND PNEUMONITIS 7242 LUMBAGO 10-08-2007 [facility] PROF SERV 36887 SHORTNESS 10-08-2007 [facility] PROF SERV 9620 POISONING 10-02-2007 [place] BY ADRENAL ASHLY EMD CORTICAL STEROIDS 42449 OTHER 09-25-2007 [facility] FATIGUE INC 7831 ABNORMAL 09-25-2007 [place] WEIGHT GAIN [facility] INC 90498 GLUCOCORTIC 09-24-2007 [place] OID ASHLY EMD DEFICIENCY 64700 ABDOMINAL 09-17-2007 [place] TENDERNESS [facility] UNSPECIFIED INC SITE 4011 ESSENTIAL 09-10-2007 [place] HYPERTENSIO ASHLY EMD N, BENIGN 5920 CALCULUS OF 09-05-2007 [place] KIDNEY [facility] INC 7880 RENAL COLIC 09-03-2007 [place] ASHLY EMD 44452 OTHER ACUTE 08-13-2007 [facility] POST[facility] HOSPITAL VE PAIN PROF SERV 28571 ASTHMA, 08-13-2007 [place] UNSPECIFIED ASHLY EMD , UNSPECIFIED STATUS 46401 ABDOMINAL 08-13-2007 [place] PA[facility], LEFT [facility] PROF SERV 02593 CHEST PAIN 08-10-2007 [facility] UNSPECIFIED [facility] INC 87286 MORBID 08-07-2007 [facility] OBESITY [facility] INC 83342 CHRONIC 08-07-2007 [facility] DUE TO [facility] TRAUMA INC 5921 CALCULUS OF 08-07-2007 [facility] URETER ASHLY EMD 5933 STRICTURE 08-07-2007 [facility] OF URETER INC 38359 PAINFUL 08-07-2007 [facility] RESPIRATION ASHLY EMD 4660 ACUTE 06-27-2007 [place] BRONCHITIS ASHLY EMD 496 CHRONIC 06-15-2007 [facility] AIRWAY ASHLY EMD OBSTRUCTION NEC 69662 OBESITY, 05-09-2007 [facility] UNSPECIFIED [facility] INC 06709 ASTHMA 05-09-2007 [place] UNSPECIFIED ASHLY EMD WITH STATUS ASTHMATICUS 63905 OTHER CHEST 05-09-2007 [facility] PAIN [facility] INC 68737 NONSPECIFIC 05-09-2007 [facility] ABNORMAL [facility] ELECTROCARD INC IOGRAM Procedures Procedure DOS Code Location Performer Comment URNLS DIP 46385 [facility] PETER 8 [facility] STICK/TAB INC INC LET REAGENT AUTO MICROSCOP Y HEPATIC 77893 [facility] FUNCTION 8 [facility] PANEL INC INC BLOOD 96480 [facility] COUNT 8 [facility] COMPLETE INC INC AUTO&AUTO DIFRNTL WBC ECG 90591 [facility] AZEVEDO, ROUTINE 8 [facility] W/LEAST PROF SERV 12 LDS I&R ONLY RHYTHM 80592 [facility] PETER ECG 1-3 8 [facility] LEADS INC INC TRACING ONLY W/O I&R BASIC 32513 [facility] METABOLIC 8 [facility] PANEL INC INC CALCIUM TOTAL CULTURE 16457 [facility] BACTERIAL 8 [facility] INC [place] [address] [facility] HEAD/BRAI 8 [facility] N W/O INC INC CONTRAST MATERIAL URINE 61420 [facility] PETER 8 [facility] TEST INC INC VISUAL COLOR CMPRSN METHS 3D 12483 [facility] RENDERING 8 [facility] W/INTERP INC INC & POSTPROCE SS SUPERVISI ON ECG 49505 [facility] ROUTINE 8 [facility] ECG INC INC W/LEAST 12 LDS TRCG ONLY W/O I&R XTRNL ECG 45103 [facility] MCKEMIE 8 [facility] RHYTHM PROF SERV W/I&R UP TO 48 HRS GLUCOSE 12259 [facility] TOLERANCE 8 [facility] TEST GTT INC INC 3 SPECIMENS CORTISOL 76478 [facility] TOTAL 8 [facility]OS[facility] INC INC CULTURE 02321 ROMEGÓMEZ FOOTEON BACTERIAL 8 [facility] H[facility] HOSP INC INC QUANTTATI VE COLONY COUNT URINE COMPREHEN 57307 [facility] SIVE 8 [facility] [address] [facility] PET[facility] THYROID 8 [facility] H[facility]OS[facility] STIMULATI INC INC NG HORMONE TSH URNLS DIP 48557 [facility] PETER 8 [facility] STICK/TAB INC INC LET REAGENT AUTO MICROSCOP Y LIPID 98369 [facility] PANEL 8 [facility]OS[facility] INC INC HEMOGLOBI 60333 [facility] N 8 MEM HOS[facility] MEM HOSP GLYCOSYLA INC INC VANESSA A1C IRON 07022 [facility] PET[facility] BINDING 8 [facility]OS[facility] CAPACITY INC INC BLOOD 06303 [facility] COUNT 8 [facility]OS[facility] COMPLETE INC INC AUTO&AUTO DIFRNTL WBC BASIC 68932 [facility] METABOLIC 8 [facility] [place] [address] [facility] PET[facility] THYROID 8 [facility] STIMULATI INC INC NG HORMONE TSH TRANSFERA 67486 [facility] SE 8 [facility] ALANINE INC INC AMINO ALT SGPT CORTISOL 83233 [facility] TOTAL 8 [place] [address] [facility] PET[facility] IRON 8 [place] [address] R[facility] PETER ABDOMEN 8 [facility] H[facility] W/O INC INC CONTRAST MATERIAL CT PELVIS 40878 [facility] PETER W/O 8 [facility]OSP CONTRAST INC INC MATERIAL 3D 31480 [facility] PET[facility] RENDERING 8 [facility]OS[facility] INC INC W/INTERP& POSTPROC DIFF WORK STATION BASIC 36794 [facility] PETER METABOLIC 8 [facility] PANEL INC INC CALCIUM TOTAL XTRNL ECG 48063 [facility] PETER & 48 HR 8 [facility] [place] [address] [facility] PETER TROPONIN 8 [facility] HOSP QUANTITAT INC INC STEFFI BLOOD 40017 [facility] PET[facility] COUNT 8 [facility] COMPLETE INC INC AUTO&AUTO DIFRNTL WBC CREATINE 45241 [facility] PETER KINASE MB 8 [facility] [place] [address] [facility] PET[facility] ANGIOGRAP 8 [facility] HOS[facility] HY CHEST INC INC W/CONTRAS T/NONCONT RAST EXTERNAL 16165 [facility] PETER ECG 8 [facility]OSP SCANNING INC INC ANALYSIS REPORT FIBRIN 65782 [facility] PET[facility] DGRADJ 8 [facility] HOSP PRODUCTS INC INC D-DIMER QUAL/SEMI [facility] CREATINE 18045 [facility] PETER KINASE 8 [facility]OS[facility] TOTAL INC INC HOSPITAL [address] [facility] 8 ASHLY ASHLY E DAY EMD MANAGEMEN T 30 MIN/< ECG 36969 [facility] PETER ROUTINE 8 [facility]OSP ECG INC INC W/LEAST 12 LDS TRCG ONLY W/O I&R SBSQ 33461 [facility] 8 ASHLY ASHLY E CARE/DAY EMD 25 MINUTES SBSQ 52283 [facility] 8 ASHLY ASHLY E CARE/DAY EMD 25 MINUTES TRNSURETH 560 [facility] PETER REMOVAL 8 [facility]OS[facility] OBST FROM INC INC URETER&RE NAL PELV URETEROSC 5631 [facility] PETER OPY 8 [facility] INC INC URETERAL 598 [facility] PETER CATHETERI 8 [facility] ZATION INC INC INITIAL 50023 [facility] 8 ASHLY ASHLY E CARE/DAY EMD 50 MINUTES INITIAL 64660 [facility] SOUZA, [facility] 8 ASHLY ASHLY E ON EMD CARE/DAY 50 MINUTES HOSPITAL 01047 HAR[facility] HARLEY, DISCHARGE 8 ASHLY ASHLY E DAY EMD MANAGEMEN T 30 MIN/< SBSQ 02801 HAR[facility] HARLEY, [facility] 8 ASHLY ASHLY E CARE/DAY EMD 25 MINUTES SBSQ 21951 [facility] SOUZA, [facility] 8 ASHLY ASHLY E CARE/DAY EMD 25 MINUTES INITIAL 91706 [facility] HALREY, [facility] 8 ASHLY ASHLY E CARE/DAY EMD 50 MINUTES Encounters Encounter Start End Date Code Location Performer Type Date OFFICE 44930 [facility] 8 8 ASHLY ASHLY E T VISIT EMD 15 MINUTES [facility] OUTPATIEN INC T OFFICE 84231 [facility] 8 8 ASHLY ASHLY E T VISIT EMD 15 MINUTES EMERGENCY 69744 [facility] 8 8 [facility] DEPARTMEN INC T VISIT MODERATE SEVERITY OFFICE 62811 [facility] 8 8 ASHLY ASHLY E T VISIT EMD 15 MINUTES [facility] 8 [facility] OUTPATIEN INC T OFFICE 34241 [facility] 8 8 ASHLY ASHLY E T VISIT EMD 15 MINUTES [facility] 8 [facility] OUTPATIEN INC T [facility] 8 [facility] OUTPATIEN INC T OFFICE 47290 [facility] 8 8 ASHLY ASHLY E T VISIT EMD 15 MINUTES [facility] - 8 8 [facility] OUTPATIEN INC T OFFICE 32285 [facility] 8 8 ASHLY ASHLY E T VISIT EMD 15 MINUTES [facility]OSPITAL [facility] - 8 8 [facility] OUTPATIEN INC T EMERGENCY 09815 [facility] 8 8 [facility] T VISIT LIMITED/M INOR PROB OFFICE 79280 [facility] 8 8 ASHLY ASHLY E T VISIT EMD 15 MINUTES EMERGENCY 24060 [facility] RAMIREZ, 8 8 [facility] T VISIT PROF SERV LOW/MODER SEVERITY HOSPITAL [facility] - 8 8 [facility] OUTPATIEN INC T EMERGENCY 85321 [facility] DEPT 8 8 MEM HOSP VISIT INC HIGH SEVERITY& THREAT [facility] - 8 8 [facility] INPATIENT INC OFFICE 15650 [facility] 8 8 ASHLY ASHLY E T VISIT EMD 15 MINUTES OFFICE 24725 [facility] 8 8 ASHLY ASHLY E T VISIT EMD 15 MINUTES OFFICE 71877 [facility] 8 8 ASHLY ASHLY E T VISIT EMD 15 MINUTES HOSPITAL [facility] - 8 8 [facility] INPATIENT INC
--- OUTSIDE RECORDS SUMMARY | 2017-01-22 22:23 | External Medical Summary Rpt | CCD ---
Demographics Preferred Language Kiswahili Marital Status Unknown Mormonism Affiliation Unknown Race Unknown Ethnic Group Unknown Author Author , MALISSA LEONARDO Address Unknown Phone Immunization Unable to retrieve immunization data due to connection failure with Immunization Registry. Please try again later.
--- OUTSIDE RECORDS SUMMARY | 2017-01-22 22:23 | External Medical Summary Rpt | CCD ---
Demographics Preferred Language Malay Marital Status Unknown Adventist Affiliation Unknown Race Unknown Ethnic Group Unknown Author Author , MALISSA LEONARDO Address Unknown Phone Immunization Unable to retrieve immunization data due to connection failure with Immunization Registry. Please try again later.
--- OUTSIDE RECORDS SUMMARY | 2017-01-22 22:23 | External Medical Summary Rpt | CCD ---
Author Author , MALISSA LEONARDO Address Unknown Phone [email or web address] Care Team Providers Care Installer Interior Assemblies Name Role Phone BIBI RAMIREZ, ASHLEY, Unavailable Unavailable HUGO GARCIA, Unavailable Unavailable [facility] AZEVEDO [facility] Unavailable Unavailable INC, [facility] ASHLY SOUZA, Unavailable Unavailable ASHLY SOUZA JR, WILLIAM Unavailable Unavailable F, MITCHELL DIAL JR Purpose Continuity of Care Document - 05-09-2007 through 2016 Problems Code Diagnosis DOS Provider Status 50861 OBSTRUCTIVE 10-31-2007 [facility] CHRONIC ASHLY EMD BRONCHITIS WITH EXACERBATIO N 2550 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 CONSCIOUSNE PROF SERV SS 4019 UNSPECIFIED 10-08-2007 [facility] N PROF SERV 4959 UNSPECIFIED 10-08-2007 [facility] ALLERGIC ASHLY EMD ALVEOLITIS AND PNEUMONITIS 7242 LUMBAGO 10-08-2007 [facility] PROF SERV 87428 SHORTNESS 10-08-2007 [facility] PROF SERV 9620 POISONING 10-02-2007 [facility] BY ADRENAL ASHLY EMD CORTICAL STEROIDS 24224 OTHER 09-25-2007 [place] [facility] FATIGUE [facility] 7831 ABNORMAL 09-25-2007 [place] WEIGHT GAIN [facility] 38389 GLUCOCORTIC 09-24-2007 [facility] OID ASHLY EMD DEFICIENCY 65883 ABDOMINAL 09-17-2007 [place] TENDERNESS [facility] UNSPECIFIED INC SITE 4011 ESSENTIAL 09-10-2007 [facility] HYPERTENSIO ASHLY EMD N, BENIGN 5920 CALCULUS OF 09-05-2007 [place] KIDNEY [facility] 7880 RENAL COLIC 09-03-2007 [facility] ASHLY EMD 87387 OTHER ACUTE 08-13-2007 [facility] VE PAIN PROF SERV 73310 ASTHMA, 08-13-2007 [facility] UNSPECIFIED ASHLY EMD , UNSPECIFIED STATUS 82654 ABDOMINAL 08-13-2007 [facility], LEFT [facility] QUADRANT PROF SERV 20270 CHEST PAIN 08-10-2007 [facility] UNSPECIFIED [facility] INC 27329 MORBID 08-07-2007 [facility]ESITY [facility] 64815 CHRONIC 08-07-2007 [facility] DUE TO [facility] TRAUMA INC 5921 CALCULUS OF 08-07-2007 [facility] URETER ASHLY EMD 5933 STRICTURE 08-07-2007 [facility] U[facility] INC 25956 PAINFUL 08-07-2007 [facility] RESPIRATION ASHLY EMD 4660 ACUTE 06-27-2007 [facility] BRONCHITIS ASHLY EMD 496 CHRONIC 06-15-2007 [facility] AIRWAY ASHLY EMD OBSTRUCTION NEC 63881 OBESITY, 05-09-2007 [facility]PECIFIED [facility] 48939 ASTHMA 05-09-2007 [facility] UNSPECIFIED ASHLY EMD WITH STATUS ASTHMATICUS 98513 OTHER CHEST 05-09-2007 [facility] PAIN [facility] 77663 NONSPECIFIC 05-09-2007 [facility] ABNORMAL [facility] ELECTROCARD INC IOGRAM Procedures Procedure DOS Code Location Performer Comment URNLS DIP 82784 [facility] 8 [facility] STICK/TAB INC INC LET REAGENT AUTO MICROSCOP Y HEPATIC 68385 [facility] FUNCTION 8 [facility] PANEL INC INC BLOOD 60742 [facility] COUNT 8 [facility] COMPLETE INC INC AUTO&AUTO DIFRNTL WBC ECG 55664 [facility] AZEVEDO, ROUTINE 8 [facility] W/LEAST PROF SERV 12 LDS I&R ONLY RHYTHM 58337 [facility] ECG 1-3 8 [facility] LEADS INC INC TRACING ONLY W/O I&R BASIC 98015 [facility] METABOLIC 8 [facility] PANEL INC INC CALCIUM TOTAL CULTURE 81175 [facility] BACTERIAL 8 [facility] INC [place] [address] [facility] HEAD/BRAI 8 [facility] N W/O INC INC CONTRAST MATERIAL URINE 43551 [facility] 8 [facility] TEST INC INC VISUAL COLOR CMPRSN METHS 3D 97942 [facility] RENDERING 8 [facility] W/INTERP INC INC & POSTPROCE SS SUPERVISI ON ECG 21639 [facility] ROUTINE 8 [facility] ECG INC INC W/LEAST 12 LDS TRCG ONLY W/O I&R XTRNL ECG 51303 [facility] MCKEMIE 8 [facility] RHYTHM PROF SERV W/I&R UP TO 48 HRS GLUCOSE 61849 [facility] TOLERANCE 8 [facility] TEST GTT INC INC 3 SPECIMENS CORTISOL 87152 [facility] TOTAL 8 [facility] INC INC CULTURE 14274 ROMEGÓMEZ FOOTEON BACTERIAL 8 [facility] INC INC QUANTTATI VE COLONY COUNT URINE COMPREHEN 17146 [facility] SIVE 8 [facility] [address] [facility] THYROID 8 [facility] STIMULATI INC INC NG HORMONE TSH URNLS DIP 25209 [facility]ER 8 [facility] STICK/TAB INC INC LET REAGENT AUTO MICROSCOP Y LIPID 94545 [facility] PANEL 8 [facility] INC INC HEMOGLOBI 78207 [facility] N 8 [facility] GLYCOSYLA INC INC VANESSA A1C IRON 14504 [facility] BINDING 8 [facility] CAPACITY INC INC BLOOD 67188 [facility] COUNT 8 [facility] COMPLETE INC INC AUTO&AUTO DIFRNTL WBC BASIC 39454 [facility] METABOLIC 8 [facility] [place] [address] [facility] THYROID 8 [facility] STIMULATI INC INC NG HORMONE TSH TRANSFERA 70948 [facility] SE 8 [facility] ALANINE INC INC AMINO ALT SGPT CORTISOL 19738 [facility] TOTAL 8 [place] [address] [facility] IRON 8 [place] [address] [facility] ABDOMEN 8 [facility] W/O INC INC CONTRAST MATERIAL CT PELVIS 69126 [facility] W/O 8 [facility] CONTRAST INC INC MATERIAL 3D 76387 R[facility] RENDERING 8 [facility] INC INC W/INTERP& POSTPROC DIFF WORK STATION BASIC 85639 [facility] METABOLIC 8 [facility] PANEL INC INC CALCIUM TOTAL XTRNL ECG 02782 [facility] & 48 HR 8 [facility] [place] [address] [facility] TROPONIN 8 [facility] QUANTITAT INC INC STEFFI BLOOD 82348 [facility] COUNT 8 [facility] COMPLETE INC INC AUTO&AUTO DIFRNTL WBC CREATINE 50838 [facility] KINASE MB 8 [facility] [place] [address] [facility] ANGIOGRAP 8 [facility] HY CHEST INC INC W/CONTRAS T/NONCONT RAST EXTERNAL 21209 [facility] ECG 8 [facility] SCANNING INC INC ANALYSIS REPORT FIBRIN 44891 [facility] DGRADJ 8 [facility] PRODUCTS INC INC D-DIMER QUAL/SEMI CLAIRE CREATINE 30805 [facility] KINASE 8 [facility] TOTAL INC INC HOSPITAL 30593 [facility] EMERGENCY DEPARTMENT 8 ASHLY ASHLY E DAY EMD MANAGEMEN T 30 MIN/< ECG 37195 [facility] ROUTINE 8 [facility] ECG INC INC W/LEAST 12 LDS TRCG ONLY W/O I&R SBSQ 47363 [facility] 8 ASHLY ASHLY E CARE/DAY EMD 25 MINUTES SBSQ 39733 [facility] 8 ASHLY ASHLY E CARE/DAY EMD 25 MINUTES TRNSURETH 560 [facility] PETER REMOVAL 8 [facility] OBST FROM INC INC URETER&RE NAL PELV URETEROSC 5631 [facility] OPY 8 [facility] INC INC URETERAL 598 [facility] CATHETERI 8 [facility] ZATION INC INC INITIAL 67489 [facility] 8 ASHLY ASHLY E CARE/DAY EMD 50 MINUTES INITIAL 45804 [facility] SOUZA, OBSERVATI 8 ASHLY ASHLY E ON EMD CARE/DAY 50 MINUTES HOSPITAL 29731 [facility], DISCHARGE 8 ASHLY ASHLY E DAY EMD MANAGEMEN T 30 MIN/< SBSQ 20011 [facility], [facility] 8 ASHLY ASHLY E CARE/DAY EMD 25 MINUTES SBSQ 36868 [facility] SOUZA, [facility] 8 ASHLY ASHLY E CARE/DAY EMD 25 MINUTES INITIAL 35460 [facility], [facility] 8 ASHLY ASHLY E CARE/DAY EMD 50 MINUTES Encounters Encounter Start End Date Code Location Performer Type Date OFFICE 64597 [facility] 8 8 A[facility]LY ASHLY E T VISIT EMD 15 MINUTES [facility] OUTPATIEN [facility] T OFFICE 57842 [facility] 8 8 A[facility]LY ASHLY E T VISIT EMD 15 MINUTES EMERGENCY 76735 [facility] DEPARTMEN INC T VISIT MODERATE SEVERITY OFFICE 64863 [facility] 8 8 [facility] ASHLY E T VISIT EMD 15 MINUTES [facility]PAT[facility] T OFFICE 79505 [facility] 8 8 A[facility]LY ASHLY E T VISIT EMD 15 MINUTES [facility] OUTPAT[facility] T OFFICE 37823 [facility] 8 8 A[facility]LY ASHLY E T VISIT EMD 15 MINUTES [facility] T OFFICE 73322 [facility] 8 8 A[facility]LY ASHLY E T VISIT EMD 15 MINUTES [facility] OUT[facility] T EMERGENCY 07048 [facility] 8 8 [facility] INC T VISIT LIMITED/M INOR PROB OFFICE 28675 [facility] 8 8 ASHLY ASHLY E T VISIT EMD 15 MINUTES EMERGENCY 89776 [facility] RAMIREZ, 8 8 [facility] T VISIT PROF SERV LOW/MODER SEVERITY [facility] - 8 8 [facility] OUTPATIEN INC T EMERGENCY 11254 [facility] DEPT 8 8 [facility] VISIT INC HIGH SEVERITY& THREAT [facility] - 8 8 [facility] INPATIENT INC OFFICE 84274 [facility] 8 8 A[facility]LY ASHLY E T VISIT EMD 15 MINUTES OFFICE 68951 [facility] 8 8 A[facility]LY ASHLY E T VISIT EMD 15 MINUTES OFFICE 21327 [facility] 8 8 A[facility]LY ASHLY E T VISIT EMD 15 MINUTES [facility] 8 8 [facility] INPATIENT INC
--- OUTSIDE RECORDS SUMMARY | 2017-01-22 22:24 | External Medical Summary Rpt ---
Author Author [facility] Natanael, [employer] [employer] Organization [facility] [employer] Address Unknown Phone Unavailable Results CBC W Auto Differential panel in Blood Observa Value Referen Units Interpr Notes Date tion ce etation Range Basophils 0 - 0.2 K/MM3 Normal No Nov 07 inform2016 [#/volume on in 11:13 AM ] in source Blood by data Automated count Basophils 0.1 - 2.0 % Normal No Nov 07 /100 2016 leukocyte on in 11:13 AM s in source Blood by data Automated count Eosinophi 0.0 - 0.4 K/mm3 Normal No Nov 07 ls 2016 [#/volume on in 11:13 AM ] in source Blood by data Automated count Eosinophi 0.1 - % Normal No Nov 07 ls/100 12.0 inform2016 leukocyte on in 11:13 AM s in source Blood by data Automated count Granulocy 1.8 - 7.8 K/mm3 Normal No Nov 07 [place] 2016 [#/volume on in 11:13 AM ] in source Blood by data Automated count Granulocy 37.0 - % Normal No Nov 07 [place]/100 80.0 2016 leukocyte on in 11:13 AM s in source Blood by data Automated count Hematocri 37.0 - % Low No Nov 07 t [Volume 47.0 ati 2016 on in 11:13 AM Fraction] source of Blood data Hemoglobi 12.2 - g/dL Low No Nov 07 n 16.2 2016 [Mass/vol on in 11:13 AM ume] in source Blood data Lymphocyt 0.7 - 4.5 K/mm3 Normal No Nov 07 es 2016 [#/volume on in 11:13 AM ] in source Unspecifi data ed specimen by Automated count Lymphocyt 10 - 50.0 % Normal No Nov 07 es 2016 [#/volume on in 11:13 AM ] in source Unspecifi data ed specimen by Automated count Erythrocy 27 - 31.2 pg Low No Nov 07 te mean 2016 corpuscul on in 11:13 AM ar source hemoglobi data n [Entitic mass] Erythrocy 31.8 - g/dl Low No Nov 07 te mean 35.4 2016 corpuscul on in 11:13 AM ar source hemoglobi data n concentra tion [Mass/vol ume] by Automated count Erythrocy 82.2 - fl Low No Nov 07 te mean 97.8 2016 corpuscul on in 11:13 AM ar volume source [Entitic data volume] by Automated count Monocytes 0.1 - 1.0 K/mm3 Normal No Nov 072016 [#/volume on in 11:13 AM ] in source Blood by data Automated count Monocytes 1.7 - 9.3 % Normal No Nov 072016 leukocyte on in 11:13 AM s in source Blood by data Automated count Platelet 7.4 - fl Normal No Nov 07 mean 10.4 2016 volume on in 11:13 AM [Entitic source volume] data in Blood by Automated count Platelets 142 - 424 K/mm3 Normal No Nov 072016 [#/volume on in 11:13 AM ] in source Blood data Erythrocy 4.2 - 5.4 M/mm3 Normal No Nov 07 [place] 2016 [#/volume on in 11:13 AM ] in source Amniotic data fluid Erythrocy 11.5 - % Normal No Nov 07 te 17.5 2016 distribut on in 11:13 AM ion width source [Entitic data volume] by Automated count Leukocyte 4.8 - K/MM3 Normal No Nov 07 s 10.8 2016 [#/volume on in 11:13 AM ] in source Blood data CBC W Auto Differential panel in Blood Observa Value Referen Units Interpr Notes Date tion ce etation Range Basophils 0 - 0.2 K/MM3 Normal No Oct 172016 7:05 [#/volume on in PM ] in source Blood by data Automated count Basophils 0.1 - 2.0 % Normal No Oct 17 informati 2016 7:05 leukocyte on in PM s in source Blood by data Automated count Eosinophi 0.0 - 0.4 K/mm3 Normal No Oct 17 ls informati 2016 7:05 [#/volume on in PM ] in source Blood by data Automated count Eosinophi 0.1 - % Normal No Oct 17 ls/100 12.0 informati 2017 7:05 leukocyte on in PM s in source Blood by data Automated count Granulocy 1.8 - 7.8 K/mm3 High No Oct 17 [place] informati 2016 7:05 [#/volume on in PM ] in source Blood by data Automated count Granulocy 37.0 - % High No Oct 17 [place]/100 80.0 informati 2017 7:05 leukocyte on in PM s in source Blood by data Automated count Hematocri 37.0 - % Normal No Oct 17 t [Volume 47.0 informati 2016 7:05 on in PM Fraction] source of Blood data Hemoglobi 12.2 - g/dL Low No Oct 17 n 16.2 informati 2016 7:05 [Mass/vol on in PM ume] in source Blood data Lymphocyt 0.7 - 4.5 K/mm3 Normal No Oct 17 es informati 2016 7:05 [#/volume on in PM ] in source Unspecifi data ed specimen by Automated count Lymphocyt 10 - 50.0 % Normal No Oct 17 es informati 2016 7:05 [#/volume on in PM ] in source Unspecifi data ed specimen by Automated count Erythrocy 27 - 31.2 pg Low No Oct 17 te mean informati 2016 7:05 corpuscul on in PM ar source hemoglobi data n [Entitic mass] Erythrocy 31.8 - g/dl Low No Oct 17 te mean 35.4 informati 2016 7:05 corpuscul on in PM ar source hemoglobi data n concentra tion [Mass/vol ume] by Automated count Erythrocy 82.2 - fl Low Oct 17 te mean 97.8 informati 2016 7:05 corpuscul on in PM ar volume source [Entitic data volume] by Automated count Monocytes 0.1 - 1.0 K/mm3 Normal No Oct 17 informati 2017 7:05 [#/volume on in PM ] in source Blood by data Automated count Monocytes 1.7 - 9.3 % Normal No Oct 17 / informati 2017 7:05 leukocyte on in PM s in source Blood by data Automated count Platelet 7.4 - fl Normal No Oct 17 mean 10.4 informati 2016 7:05 volume on in PM [Entitic source volume] data in Blood by Automated count Platelets 142 - 424 K/mm3 Normal No Oct 17 informati 2016 7:05 [#/volume on in PM ] in source Blood data Erythrocy 4.2 - 5.4 M/mm3 Normal No Oct 17 [place] informati 2016 7:05 [#/volume on in PM ] in source Amniotic data fluid Erythrocy 11.5 - % Normal No Oct 17 te 17.5 informati 2017 7:05 distribut on in PM ion width source [Entitic data volume] by Automated count Leukocyte 4.8 - K/MM3 High No Oct 17 s 10.8 informati 2016 7:05 [#/volume on in PM ] in source Blood data Comprehensive metabolic 2000 panel in Serum or Plasma Observa Value Referen Units Interpr Notes Date tion ce etation Range Albumin/G 1.1 - 1.8 No Low No Oct 05 lobulin informati informati 2016 3:14 [Mass on in on in PM ratio] in source source Serum or data data Plasma Albumin 3.4 - 5.0 gm/dL Normal No Oct 05 [Mass/vol informati 2016 3:14 ume] in on in PM Serum or source Plasma data Alkaline 46 - 116 U/L Normal No Oct 05 phosphata informati 2016 3:14 se on in PM [Enzymati source c data activity/ volume] in Serum or Plasma Bilirubin 0.2 - 1.0 mg/dL Normal No Oct 05 .total informati 2016 3:14 [Mass/vol on in PM ume] in source Serum or data Plasma Urea 7 - 18 mg/dL Normal No Oct 05 nitrogen informati 2016 3:14 [Mass/vol on in PM ume] in source Serum or data Plasma Calcium 8.5 - mg/dL Normal No Oct 05 [Mass/vol 10.1 informati 2016 3:14 ume] in on in PM Serum or source Plasma data Chloride 98 - 107 mmoL/L Normal No Oct 05 [Moles/vo informati 2016 3:14 lume] in on in PM Serum or source Plasma data Carbon 21.0 - mmoL/L Normal No Oct 05 dioxide, 32.0 informati 2016 3:14 total on in PM [Moles/vo source lume] in data Serum or Plasma Creatinin 0.55 - mg/dL Normal No Oct 05 e 1.02 informati 2016 3:14 [Mass/vol on in PM ume] in source Serum or data Plasma Estimated 59- ML/MIN No REFERENCE Oct 05 informati RANGE: 2017 3:14 glomerula on in >60 PM r source ML/MIN/1. filtratio data 73 SQUARE n rate METERSIf (GF this patient is -A merican, then multiply theresult by 1.210. Globulin 1.3 - 3.2 gm/dL High No Oct 05 [Mass/vol informati 2016 3:14 ume] in on in PM Serum source data Glucose 74 - 106 mg/dL Normal No Oct 05 [Mass/vol informati 2016 3:14 ume] in on in PM Serum or source Plasma data Potassium 3.5 - 5.1 mmoL/L Normal No Oct 052016 3:14 [Moles/vo on in PM lume] in source Serum or data Plasma Sodium 136 - 145 mmoL/L Normal No Oct 05 [Moles/vo ati 2016 3:14 lume] in on in PM Serum or source Plasma data Aspartate 15 - 37 U/L Normal No Oct 052016 3:14 aminotran on in PM sferase source [Enzymati data c activity/ volume] in Serum or Plasma Alanine 12 - 78 U/L Normal No Oct 05 aminotran 2016 3:14 sferase on in PM [Enzymati source c data activity/ volume] in Serum or Plasma Protein 6.4 - 8.2 gm/dL Normal No Oct 05 [Mass/vol informati 2016 3:14 ume] in on in PM Serum or source Plasma data Urinalysis dipstick W Reflex Microscopic panel in Urine Observa Value Referen Units Interpr Notes Date tion ce etation Range Appeara CLEAR CLEAR No No No Oct 05 nce of informa informa informa 2016 Urine tion in tion in tion in 3:14 PM source source source data data data Bacteri 2+ O No No No Oct 05 a informa informa informa 2016 [Presen tion in tion in tion in 3:14 PM ce] in source source source Urine data data data sedimen t by Light microsc opy Bilirub NEGATIV NEG No No No Oct 05 in E informa informa informa 2016 [Presen tion in tion in tion in 3:14 PM ce] in source source source Urine data data data by Test strip Erythro 2+ NEG No Abnorma No Oct 05 cytes informa l informa 2016 [Presen tion in tion in 3:14 PM ce] in source source Urine data data Color YELLOW YELLOW No No No Oct 5 of informa informa informa 2017 Urine tion in tion in tion in 3:14 PM source source source data data data Glucose NEG No No No Oct 05 [Mass/vol informati informati informati 2016 3:14 ume] in on in on in on in PM Urine by source source source Test data data data strip Ketones NEGATIV NEG mg/dL No No Oct 05 E informa informa 2016 [Presen tion in tion in 3:14 PM ce] in source source Urine data data by Automat ed test strip Mucus 1+ NEG No Abnorma No Oct 05 [Presen informa l informa 2016 ce] in tion in tion in 3:14 PM Urine source source sedimen data data t by Light microsc opy Mucus 2+ OCC No No No Oct 05 [Presen informa informa informa 2016 ce] in tion in tion in tion in 3:14 PM Urine source source source sedimen data data data t by Light microsc opy Nitrite NEGATIV NEG No No No Oct 05 E informa informa informa 2016 [Presen tion in tion in tion in 3:14 PM ce] in source source source Urine data data data by Test strip pH of 5.0 - 8.5 No Normal No Oct 05 Urine informati informati 2016 3:14 on in on in PM source source data data Protein NEG mg/dL No No Oct 05 [Mass/vol informati informati 2016 3:14 ume] in on in on in PM Urine by source source Automated data data test strip Erythro 3-5 0 rbc/hpf No No Oct 05 cytes informa informa 2016 [Presen tion in tion in 3:14 PM ce] in source source Urine data data sedimen t by Light microsc opy Specific 1.005 - No Normal No Oct 05 gravity 1.030 informati informati 2017 3:14 of Urine on in on in PM source source data data Epithel 5-10 0 - 5 #/hpf No No Oct 05 ial informa informa 2017 cells.s tion in tion in 3:14 PM quamous source source data data [Presen ce] in Urine sedimen t by Microsc opy high power field Urobili 0.2 NEG E.U./dL No No Oct 05 nogen informa informa 2016 [Presen tion in tion in 3:14 PM ce] in source source Urine data data by Test strip Leukocy [5 O wbc/hpf No No Oct 05 [place] wbc/hpf informa informa 2016 [#/volu ; 10 tion in tion in 3:14 PM me] in wbc/hpf source source Urine ] data data Urinalysis dipstick W Reflex Microscopic panel in Urine Observa Value Referen Units Interpr Notes Date tion ce etation Range Appeara CLEAR CLEAR No No No Oct 05 nce of informa informa informa 2016 Urine tion in tion in tion in 3:14 PM source source source data data data Bilirub NEGATIV NEG No No No Oct 05 in E informa informa informa 2016 [Presen tion in tion in tion in 3:14 PM ce] in source source source Urine data data data by Test strip Erythro 2+ NEG No Abnorma No Oct 05 cytes informa l informa 2016 [Presen tion in tion in 3:14 PM ce] in source source Urine data data Color YELLOW YELLOW No No No Oct 05 of informa informa informa 2016 Urine tion in tion in tion in 3:14 PM source source source data data data Glucose NEG No No No Oct 05 [Mass/vol informati informati informati 2016 3:14 ume] in on in on in on in PM Urine by source source source Test data data data strip Ketones NEGATIV NEG mg/dL No No Oct 05 E informa informa 2016 [Presen tion in tion in 3:14 PM ce] in source source Urine data data by Automat ed test strip Mucus 1+ NEG No Abnorma No Oct 05 [Presen informa l informa 2016 ce] in tion in tion in 3:14 PM Urine source source sedimen data data t by Light microsc opy Nitrite NEGATIV NEG No No No Oct 05 E informa informa informa 2016 [Presen tion in tion in tion in 3:14 PM ce] in source source source Urine data data data by Test strip pH of 5.0 - 8.5 No Normal No Oct 05 Urine informati informati 2016 3:14 on in on in PM source source data data Protein NEG mg/dL No No Oct 05 [Mass/vol ati informati 2016 3:14 ume] in on in on in PM Urine by source source Automated data data test strip Specific 1.005 - No Normal No Oct 05 gravity 1.030 informati informati 2016 3:14 of Urine on in on in PM source source data data Urobili 0.2 NEG E.U./dL No No Oct 05 nogen informa informa 2016 [Presen tion in tion in 3:14 PM ce] in source source Urine data data by Test strip CBC W Auto Differential panel in Blood Observa Value Referen Units Interpr Notes Date tion ce etation Range Basophils 0 - 0.2 K/MM3 Normal No Oct 05 inform2016 3:14 [#/volume on in PM ] in source Blood by data Automated count Basophils 0.1 - 2.0 % Normal No Oct 05 / inform2016 3:14 leukocyte on in PM s in source Blood by data Automated count Eosinophi 0.0 - 0.4 K/mm3 Normal No Oct 05 ls 2016 3:14 [#/volume on in PM ] in source Blood by data Automated count Eosinophi 0.1 - % Normal No Oct 05 ls/100 12.0 inform2016 3:14 leukocyte on in PM s in source Blood by data Automated count Granulocy 1.8 - 7.8 K/mm3 Normal No Oct 05 [place] 2016 3:14 [#/volume on in PM ] in source Blood by data Automated count Granulocy 37.0 - % Normal No Oct 05 [place]/100 80.0 2016 3:14 leukocyte on in PM s in source Blood by data Automated count Hematocri 37.0 - % Low No Oct 05 t [Volume 47.0 2016 3:14 on in PM Fraction] source of Blood data Hemoglobi 12.2 - g/dL Low No Oct 05 n 16.2 informati 2016 3:14 [Mass/vol on in PM ume] in source Blood data Lymphocyt 0.7 - 4.5 K/mm3 Normal No Oct 05 es 2016 3:14 [#/volume on in PM ] in source Unspecifi data ed specimen by Automated count Lymphocyt 10 - 50.0 % Normal No Oct 05 es 2016 3:14 [#/volume on in PM ] in source Unspecifi data ed specimen by Automated count Erythrocy 27 - 31.2 pg Low No Oct 05 te mean informati 2016 3:14 corpuscul on in PM ar source hemoglobi data n [Entitic mass] Erythrocy 31.8 - g/dl Normal No Oct 05 te mean 35.4 informati 2016 3:14 corpuscul on in PM ar source hemoglobi data n concentra tion [Mass/vol ume] by Automated count Erythrocy 82.2 - fl Low No Oct 05 te mean 97.8 informati 2016 3:14 corpuscul on in PM ar volume source [Entitic data volume] by Automated count Monocytes 0.1 - 1.0 K/mm3 Normal No Oct 05 informati 2016 3:14 [#/volume on in PM ] in source Blood by data Automated count Monocytes 1.7 - 9.3 % Normal No Oct 05 /100 informati 2016 3:14 leukocyte on in PM s in source Blood by data Automated count Platelet 7.4 - fl Low No Oct 05 mean 10.4 informati 2016 3:14 volume on in PM [Entitic source volume] data in Blood by Automated count Platelets 142 - 424 K/mm3 High No Oct 05 informati 2016 3:14 [#/volume on in PM ] in source Blood data Erythrocy 4.2 - 5.4 M/mm3 Normal No Oct 05 [place] informati 2016 3:14 [#/volume on in PM ] in source Amniotic data fluid Erythrocy 11.5 - % Normal No Oct 05 te 17.5 informati 2016 3:14 distribut on in PM ion width source [Entitic data volume] by Automated count Leukocyte 4.8 - K/MM3 Normal No Oct 05 s 10.8 informati 2016 3:14 [#/volume on in PM ] in source Blood data Choriogonadotropin [Units/volume] in Serum or Plasma Observa Value Referen Units Interpr Notes Date tion ce etation Range Choriogon NEG No No Meulendyk Sep 28 adotropin informati Nella pastor 2016 9:59 on in on in ne AM [Units/vo source source lume] in data data Serum or Plasma Comprehensive metabolic 2000 panel in Serum or Plasma Observa Value Referen Units Interpr Notes Date tion ce etation Range Albumin/G 1.1 - 1.8 No Low No Sep 19 lobulin informati informati 2016 1:46 [Mass on in on in PM ratio] in source source Serum or data data Plasma Albumin 3.4 - 5.0 gm/dL Normal No Sep 19 [Mass/vol informati 2016 1:46 ume] in on in PM Serum or source Plasma data Alkaline 46 - 116 U/L Normal No Sep 19 phosphata informati 2016 1:46 se on in PM [Enzymati source c data activity/ volume] in Serum or Plasma Bilirubin 0.2 - 1.0 mg/dL Normal No Sep 19 .total informati 2016 1:46 [Mass/vol on in PM ume] in source Serum or data Plasma Urea 7 - 18 mg/dL Normal No Sep 19 nitrogen informati 2016 1:46 [Mass/vol on in PM ume] in source Serum or data Plasma Calcium 8.5 - mg/dL Normal No Sep 19 [Mass/vol 10.1 informati 2016 1:46 ume] in on in PM Serum or source Plasma data Chloride 98 - 107 mmoL/L Normal No Sep 19 [Moles/vo informati 2016 1:46 lume] in on in PM Serum or source Plasma data Carbon 21.0 - mmoL/L Normal No Sep 19 dioxide, 32.0 informati 2016 1:46 total on in PM [Moles/vo source lume] in data Serum or Plasma Creatinin 0.55 - mg/dL Normal No Sep 19 e 1.02 informati 2016 1:46 [Mass/vol on in PM ume] in source Serum or data Plasma Estimated 59- ML/MIN No REFERENCE Sep 19 informati RANGE: 2017 1:46 glomerula on in >60 PM r source ML/MIN/1. filtratio data 73 SQUARE n rate METERSIf (GF this patient is -A merican, then multiply theresult by 1.210. Globulin 1.3 - 3.2 gm/dL High No Sep 19 [Mass/vol informati 2016 1:46 ume] in on in PM Serum source data Glucose 74 - 106 mg/dL Normal No Sep 19 [Mass/vol informati 2016 1:46 ume] in on in PM Serum or source Plasma data Potassium 3.5 - 5.1 mmoL/L Normal No Sep 19 informati 2016 1:46 [Moles/vo on in PM lume] in source Serum or data Plasma Sodium 136 - 145 mmoL/L Normal No Sep 19 [Moles/vo informati 2016 1:46 lume] in on in PM Serum or source Plasma data Aspartate 15 - 37 U/L Normal No Sep 19 inform2016 1:46 aminotran on in PM sferase source [Enzymati data c activity/ volume] in Serum or Plasma Alanine 12 - 78 U/L Normal No Sep 19 aminotran inform2016 1:46 sferase on in PM [Enzymati source c data activity/ volume] in Serum or Plasma Protein 6.4 - 8.2 gm/dL Normal No Sep 19 [Mass/vol informati 2016 1:46 ume] in on in PM Serum or source Plasma data CBC W Auto Differential panel in Blood Observa Value Referen Units Interpr Notes Date tion ce etation Range Basophils 0 - 0.2 K/MM3 Normal No Sep 19 inform2016 1:46 [#/volume on in PM ] in source Blood by data Automated count Basophils 0.1 - 2.0 % Normal No Sep 19 / informati 2016 1:46 leukocyte on in PM s in source Blood by data Automated count Eosinophi 0.0 - 0.4 K/mm3 Normal No Sep 19 ls ati 2016 1:46 [#/volume on in PM ] in source Blood by data Automated count Eosinophi 0.1 - % Normal No Sep 19 ls/100 12.0 informati 2016 1:46 leukocyte on in PM s in source Blood by data Automated count Granulocy 1.8 - 7.8 K/mm3 Normal No Sep 19 [place] informati 2016 1:46 [#/volume on in PM ] in source Blood by data Automated count Granulocy 37.0 - % Normal No Sep 19 [place]/100 80.0 informati 2016 1:46 leukocyte on in PM s in source Blood by data Automated count Hematocri 37.0 - % Normal No Sep 19 t [Volume 47.0 informati 2016 1:46 on in PM Fraction] source of Blood data Hemoglobi 12.2 - g/dL Normal No Sep 19 n 16.2 informati 2016 1:46 [Mass/vol on in PM ume] in source Blood data Lymphocyt 0.7 - 4.5 K/mm3 Normal No Sep 19 es informati 2016 1:46 [#/volume on in PM ] in source Unspecifi data ed specimen by Automated count Lymphocyt 10 - 50.0 % Normal No Kenan 19 es informati 2016 1:46 [#/volume on in PM ] in source Unspecifi data ed specimen by Automated count Erythrocy 27 - 31.2 pg Low No Sep 19 te mean inform2016 1:46 corpuscul on in PM ar source hemoglobi data n [Entitic mass] Erythrocy 31.8 - g/dl Low No Sep 19 te mean 35.4 informati 2016 1:46 corpuscul on in PM ar source hemoglobi data n concentra tion [Mass/vol ume] by Automated count Erythrocy 82.2 - fl Normal No Sep 19 te mean 97.8 informati 2016 1:46 corpuscul on in PM ar volume source [Entitic data volume] by Automated count Monocytes 0.1 - 1.0 K/mm3 Normal No Sep 19 inform2016 1:46 [#/volume on in PM ] in source Blood by data Automated count Monocytes 1.7 - 9.3 % Normal No Sep 19 /100 informati 2016 1:46 leukocyte on in PM s in source Blood by data Automated count Platelet 7.4 - fl Normal No Sep 19 mean 10.4 informati 2016 1:46 volume on in PM [Entitic source volume] data in Blood by Automated count Platelets 142 - 424 K/mm3 No No Sep 19 informati informati 2016 1:46 [#/volume on in on in PM ] in source source Blood data data Erythrocy 4.2 - 5.4 M/mm3 Normal No Sep 19 [place] informati 2016 1:46 [#/volume on in PM ] in source Amniotic data fluid Erythrocy 11.5 - % Normal No Sep 19 te 17.5 informati 2016 1:46 distribut on in PM ion width source [Entitic data volume] by Automated count Leukocyte 4.8 - K/MM3 Normal No Sep 19 s 10.8 informati 2016 1:46 [#/volume on in PM ] in source Blood data Comprehensive metabolic 2000 panel in Serum or Plasma Observa Value Referen Units Interpr Notes Date tion ce etation Range Albumin/G 1.1 - 1.8 No Low No August 19 lobulin informati informati 2016 2:22 [Mass on in on in PM ratio] in source source Serum or data data Plasma Albumin 3.4 - 5.0 gm/dL Normal No August 19 [Mass/vol informati 2016 2:22 ume] in on in PM Serum or source Plasma data Alkaline 46 - 116 U/L Normal No August 19 phosphata informati 2016 2:22 se on in PM [Enzymati source c data activity/ volume] in Serum or Plasma Bilirubin 0.2 - 1.0 mg/dL Normal No August 19 .total informati 2016 2:22 [Mass/vol on in PM ume] in source Serum or data Plasma Urea 7 - 18 mg/dL Normal No August 19 nitrogen informati 2016 2:22 [Mass/vol on in PM ume] in source Serum or data Plasma Calcium 8.5 - mg/dL Normal No August 19 [Mass/vol 10.1 informati 2016 2:22 ume] in on in PM Serum or source Plasma data Chloride 98 - 107 mmoL/L Normal No August 19 [Moles/vo informati 2016 2:22 lume] in on in PM Serum or source Plasma data Carbon 21.0 - mmoL/L Normal No August 19 dioxide, 32.0 informati 2016 2:22 total on in PM [Moles/vo source lume] in data Serum or Plasma Creatinin 0.55 - mg/dL Normal No August 19 e 1.02 informati 2016 2:22 [Mass/vol on in PM ume] in source Serum or data Plasma Estimated 59- ML/MIN No REFERENCE August 19 informati RANGE: 2017 2:22 glomerula on in >60 PM r source ML/MIN/1. filtratio data 73 SQUARE n rate METERSIf (GF this patient is -A merican, then multiply theresult by 1.210. Globulin 1.3 - 3.2 gm/dL High No August 19 [Mass/vol informati 2016 2:22 ume] in on in PM Serum source data Glucose 74 - 106 mg/dL High No August 19 [Mass/vol informati 2016 2:22 ume] in on in PM Serum or source Plasma data Potassium 3.5 - 5.1 mmoL/L Normal No August 19 informati 2016 2:22 [Moles/vo on in PM lume] in source Serum or data Plasma Sodium 136 - 145 mmoL/L Normal No August 19 [Moles/vo informati 2016 2:22 lume] in on in PM Serum or source Plasma data Aspartate 15 - 37 U/L Normal No August 19 informati 2016 2:22 aminotran on in PM sferase source [Enzymati data c activity/ volume] in Serum or Plasma Alanine 12 - 78 U/L Normal No August 19 aminotran inform2016 2:22 sferase on in PM [Enzymati source c data activity/ volume] in Serum or Plasma Protein 6.4 - 8.2 gm/dL Normal No August 19 [Mass/vol inform2016 2:22 ume] in on in PM Serum or source Plasma data CBC W Auto Differential panel in Blood Observa Value Referen Units Interpr Notes Date tion ce etation Range Basophils 0 - 0.2 K/MM3 Normal No August 192016 2:22 [#/volume on in PM ] in source Blood by data Automated count Basophils 0.1 - 2.0 % Normal No August 19 / informati 2016 2:22 leukocyte on in PM s in source Blood by data Automated count Eosinophi 0.0 - 0.4 K/mm3 Normal No August 19 ls 2016 2:22 [#/volume on in PM ] in source Blood by data Automated count Eosinophi 0.1 - % Normal No August 19 ls/100 12.0 inform2016 2:22 leukocyte on in PM s in source Blood by data Automated count Granulocy 1.8 - 7.8 K/mm3 Normal No August 19 [place] 2016 2:22 [#/volume on in PM ] in source Blood by data Automated count Granulocy 37.0 - % Normal No August 19 [place]/100 80.0 2016 2:22 leukocyte on in PM s in source Blood by data Automated count Hematocri 37.0 - % Low No August 19 t [Volume 47.0 2016 2:22 on in PM Fraction] source of Blood data Hemoglobi 12.2 - g/dL Low No August 19 n 16.2 ati 2016 2:22 [Mass/vol on in PM ume] in source Blood data Lymphocyt 0.7 - 4.5 K/mm3 Normal No August 19 es informati 2016 2:22 [#/volume on in PM ] in source Unspecifi data ed specimen by Automated count Lymphocyt 10 - 50.0 % Normal No August 19 es 2016 2:22 [#/volume on in PM ] in source Unspecifi data ed specimen by Automated count Erythrocy 27 - 31.2 pg Low No August 19 te mean ati 2016 2:22 corpuscul on in PM ar source hemoglobi data n [Entitic mass] Erythrocy 31.8 - g/dl Normal No August 19 te mean 35.4 informati 2016 2:22 corpuscul on in PM ar source hemoglobi data n concentra tion [Mass/vol ume] by Automated count Erythrocy 82.2 - fl Normal No August 19 te mean 97.8 informati 2016 2:22 corpuscul on in PM ar volume source [Entitic data volume] by Automated count Monocytes 0.1 - 1.0 K/mm3 Normal No August 19 informati 2016 2:22 [#/volume on in PM ] in source Blood by data Automated count Monocytes 1.7 - 9.3 % Normal No August 19 / informati 2017 2:22 leukocyte on in PM s in source Blood by data Automated count Platelet 7.4 - fl Normal No August 19 mean 10.4 informati 2016 2:22 volume on in PM [Entitic source volume] data in Blood by Automated count Platelets 142 - 424 K/mm3 Normal No August 19 informati 2017 2:22 [#/volume on in PM ] in source Blood data Erythrocy 4.2 - 5.4 M/mm3 Normal No August 19 [place] informati 2017 2:22 [#/volume on in PM ] in source Amniotic data fluid Erythrocy 11.5 - % Normal No August 19 te 17.5 informati 2016 2:22 distribut on in PM ion width source [Entitic data volume] by Automated count Leukocyte 4.8 - K/MM3 Normal No August 19 s 10.8 informati 2016 2:22 [#/volume on in PM ] in source Blood data
[2017-01-22 22:27] LABS: URINE BILIRUBIN - DIPSTICK NEGATIVE (NEG); URINE BLOOD 3+ (NEG)
[2017-01-22 22:34] LABS: AMPHETAMINES/METAMPHETAMINES NEGATIVE ng/mL (<1000)
[2017-01-22 22:51] LABS: HEMOGLOBIN 11.1 g/dL (12.2-16.2); LYMPH # 3.1 K/mm3 (0.7-4.5); LYMPH % 29.8 % (10-50.0)
[2017-01-22 23:12] LABS: FREE THYROXIN INDEX 9.1 ug/dl (5.93-13.13)
--- NOTE | 2017-01-22 23:51 | Emergency Room Report ---
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 N Clinical Suspician of Infection? N Mental Status: 1 - Regular (Normal Baseline) Sepsis Risk:Possible Sepsis Risk Have you (or family members/close friends) recently traveled outside the [place]? N If Yes, where/when: Have you had exposure to infectious disease within the past month? N TB? Other? Specify: Source patient, RN notes reviewed, family, RN/MD Exam Limitations no limitations Comment This is a 46-year-old female patient arriving to the emergency room with a headache, associated with blurred vision, feeling confused and sleepy red in the face, since noon today. She has a history of urinary tract infections in the past. ALLERGIES Coded Allergies: aspirin (Severe, S-DIFF. BREATHING 09/28/16) SUCRALOSE (FOOD) (From SUCRALOSE (FOOD/DRUG)) (09/28/16) bee venom protein (honey bee) (09/28/16) sucralose (From SUCRALOSE (FOOD/DRUG)) (09/28/16) Home Medications Active Scripts Tramadol Hcl 50 MG PO BID #60 TAB Ref 2 Prov: 11/03/15 ALBUTEROL (Albuterol 0.083% Neb) 2.5 MG IN Q6 PRN SHORTNESS OF BREATH #30 VIAL Prov: 10/13/13 Reported Medications Ibuprofen (Ibuprofen 800MG) 800 MG PO TID Tramadol Hcl 50 MG PO Q6HP PRN PAIN Cetirizine Hcl (All Day Allergy) 10 MG PO DAILY Lisinopril (Lisinopril 40MG) 40 MG PO DAILY Hydrochlorothiazide (Hydrochlorothiazide 12.5MG) 25 MG PO DAILY Prednisone (Prednisone 20MG) 40 MG PO DAILY #16 Spironolactone (Aldactone) 25 MG PO DAILY #30 History Medical History General CAD? No Angina: Yes [place]: No Hypertension? Yes Hyperlipidemia? No CHF? No DVT? No PE? No COPD? No Asthma? Yes Anemia? No GERD? No Gastric ulcers? No GI Bleed? No Hernia? No Thyroid Problems? No Hypothyroidism? No CVA? No Seizures? No Diabetes? No Renal Insuffiency? No End Stage Renal Disease? No UTI? No Stones? No BPH? No GB Disease: No Nephritic Syndrome? No Asplenia? No Hepatitis? No Sickle Cell Disease? No Arthritis? No Migraines? No Cataracts? No Glaucoma? No MRSA? No HIV? No TB? No Anxiety? No Depression? No Cancer? No More? 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 Family History Family Hx Diabetes No CAD Yes Hypertension Yes Hyperlipidemia Yes Cancer No TB No Social History Smoking Hx Smoker: Never Smoker Tobacco: No Type Cigarettes Alcohol Alcohol: No Review of Systems All Other Systems Reviewed and Negative Psychiatric/Neurological headache Physical Exam Vital Signs Vital Signs Date Time Temp Pulse Resp B/P Pulse O2 O2 Flow FiO2 Ox Delivery Rate 01/23 0109 104 16 122/90 96 01/23 0016 98.8 105 22 108/85 96 01/22 2326 20 01/22 2229 127 132/115 01/22 2229 86 126/69 01/22 2156 98.8 102 20 123/71 99 General Appearance normal appearance, WD/WN Eye Exam - bilateral eye normal exam, bilateral eye PERRL, bilateral eye EOMI Neck normal inspection, non-tender, supple, full range of motion Respiratory Status Yes: trachea midline, chest symmetrical, non tender chest. No: respiratory distress. Lung Sounds bilateral: normal breath sounds, lungs clear. 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 No Comment 00:45am-Upon the re-evaluation patient appears medically stable, clinically improving, resoponding to the Antivert, in no acute distress. Advised patient to follow-up with ENT, Dr. Canada or Dr. Patterson, for discharge instructions. If any worse patient advised return promptly to this, same, emergency room for another re-evaluation. Results/Orders Laboratory Tests 01/22/172244: TSH 1.70, Free T4 Index 9.1, Thyroxine (T4) 10.2, T3 Uptake 36 01/22/172244: Sodium 139, Potassium 4.0, Chloride 103, Carbon Dioxide 28, BUN 11, Creatinine 0.9, Estimated Creat Clear 143, Estimated GFR (MDRD) 68, Glucose 92, Calcium 8.4 L, Total Bilirubin 0.2, AST 14 L, ALT 26, Alkaline Phosphatase 87, Total Protein 7.1, Albumin 3.1 L, Globulin 4.0 H, Albumin/Globulin Ratio 0.8 L, WBC 10.5, RBC 4.49, Hgb 11.1 L, Hct 35.8 L, MCV 79.7 L, RDW 14.6, Plt Count 294, MPV 7.9, Gran % 62.3, Gran # 6.5, Lymphocytes % 29.8, Monocytes % 5.1, Eosinophils % 1.9, Basophils % 0.9, Lymphocytes # 3.1, Monocytes # 0.5, Eosinophils # 0.2, Basophils # 0.1, PUBS MCHC 31.1 L, MCH 24.8 L 01/22/172219: Opiates Screen NEGATIVE, Urine Methadone Screen NEGATIVE, Barbiturates NEGATIVE, Phencyclidine Screen NEGATIVE, Amphetamines Screen NEGATIVE, Benzodiazepines Screen NEGATIVE, Cocaine Screen NEGATIVE, Marijuana (THC) Screen NEGATIVE, Urine Color YELLOW, Urine Appearance CLOUDY, Urine pH 6.0, Ur Specific [place] 1.025, Urine Protein TRACE H, Urine Ketones NEGATIVE, Urine Blood 3+ H, Urine Nitrate NEGATIVE, Urine Bilirubin NEGATIVE, Urine Urobilinogen 0.2, Ur Leukocyte Esterase NEGATIVE, Urine RBC 50-100, Ur Squamous Epith Cells 5-10, Urine Glucose NEGATIVE 01/22/17 2211: POC Glucose 120 H Orders Procedure Date/time Status DIET-NOTHING BY MOUTH 01/[address] HEAD REQ 01/22 2303 Active IV SALINE LOCK 01/22 2223 Active ORTHOSTATIC B/P 01/22 2223 Active FSBS REQUEST BY CARE AREA 01/23 2212 Active FINGERSTICK BLOOD SUGAR 01/22 2211 Complete THYROID PANEL 2 (WITH TSH) 01/22 2203 Complete URINALYSIS/COMPLETE 01/22 2202 Complete URINE 01/22 2202 Complete DRUG ABUSE SCREEN (TRIAGE) 01/22 2202 Complete CBC WITH AUTO DIFF 01/22 2202 Complete CHEM 12 PROFILE 01/22 2202 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 of ischemic chgs, no ectopy, normal QRS, normal [place], normal EKG, no EKG for comparison, non-spec. ST/Twave chgs, ST elevation, ST depression, LBBB, RBBB, ectopy, abnormal Q waves XRAY/CT/US XRAY/CT/US CT head CT interpretation by discussed w/radiologist CT Results normal/NAD, no fracture seen Comment No ICH Departure Departure Time of Disposition 0100 Disposition DC Home or Self Care(routine) Clinical Impression Primary Impression: Labyrinthitis Qualifiers: Laterality: unspecified laterality Qualified Code: H83.09 - Labyrinthitis, unspecified ear Condition STABLE Referrals Yesenia AGOSTO, Tawny Canada MD,Brandon Moreno Patient Instructions DI for Labyrinthitis Additional Instructions Please take the medications prescribed as instructed, alternate Faragher with Zofran as needed for nausea, follow-up with one of the ENT specialist listed below, Dr. Tawny Patterson or Dr. Brandon Canada, within the next [address] Saini today, in the office. Discharge Counseling Counseled pt/family regarding diagnosis, test results, medications/RX, home care, follow up needs Comment Please take the medications prescribed as instructed, alternate Faragher with Zofran as needed for nausea, follow-up with one of the ENT specialist listed below, Dr. Tawny Patterson or Dr. Brandon Canada, within the next [address] Saini today, in the office. Prescriptions Current Visit Scripts MECLIZINE HCL (ANTIVERT 25MG (generic)) 25 MG PO QIDP PRN dizziness #30 TAB ED Critical Care Critical Care No at 1025
--- NOTE | 2017-01-22 23:51 | Emergency Room Report ---
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 N Clinical Suspician of Infection? N Mental Status: 1 - Regular (Normal Baseline) Sepsis Risk:Possible Sepsis Risk Have you (or family members/close friends) recently traveled outside the [place]? N If Yes, where/when: Have you had exposure to infectious disease within the past month? N TB? Other? Specify: Source patient, RN notes reviewed, family, RN/MD Exam Limitations no limitations Comment This is a 46-year-old female patient arriving to the emergency room with a headache, associated with blurred vision, feeling confused and sleepy red in the face, since noon today. She has a history of urinary tract infections in the past. ALLERGIES Coded Allergies: aspirin (Severe, S-DIFF. BREATHING 09/28/16) SUCRALOSE (FOOD) (From SUCRALOSE (FOOD/DRUG)) (09/28/16) bee venom protein (honey bee) (09/28/16) sucralose (From SUCRALOSE (FOOD/DRUG)) (09/28/16) Home Medications Active Scripts Tramadol Hcl 50 MG PO BID #60 TAB Ref 2 Prov: 11/03/15 ALBUTEROL (Albuterol 0.083% Neb) 2.5 MG IN Q6 PRN SHORTNESS OF BREATH #30 VIAL Prov: 10/13/13 Reported Medications Ibuprofen (Ibuprofen 800MG) 800 MG PO TID Tramadol Hcl 50 MG PO Q6HP PRN PAIN Cetirizine Hcl (All Day Allergy) 10 MG PO DAILY Lisinopril (Lisinopril 40MG) 40 MG PO DAILY Hydrochlorothiazide (Hydrochlorothiazide 12.5MG) 25 MG PO DAILY Prednisone (Prednisone 20MG) 40 MG PO DAILY #16 Spironolactone (Aldactone) 25 MG PO DAILY #30 History Medical History General CAD? No Angina: Yes [place]: No Hypertension? Yes Hyperlipidemia? No CHF? No DVT? No PE? No COPD? No Asthma? Yes Anemia? No GERD? No Gastric ulcers? No GI Bleed? No Hernia? No Thyroid Problems? No Hypothyroidism? No CVA? No Seizures? No Diabetes? No Renal Insuffiency? No End Stage Renal Disease? No UTI? No Stones? No BPH? No GB Disease: No Nephritic Syndrome? No Asplenia? No Hepatitis? No Sickle Cell Disease? No Arthritis? No Migraines? No Cataracts? No Glaucoma? No MRSA? No HIV? No TB? No Anxiety? No Depression? No Cancer? No More? 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 Family History Family Hx Diabetes No CAD Yes Hypertension Yes Hyperlipidemia Yes Cancer No TB No Social History Smoking Hx Smoker: Never Smoker Tobacco: No Type Cigarettes Alcohol Alcohol: No Review of Systems All Other Systems Reviewed and Negative Psychiatric/Neurological headache Physical Exam Vital Signs Vital Signs Date Time Temp Pulse Resp B/P Pulse O2 O2 Flow FiO2 Ox Delivery Rate 01/23 0109 104 16 122/90 96 01/23 0016 98.8 105 22 108/85 96 01/22 2326 20 01/22 2229 127 132/115 01/22 2229 86 126/69 01/22 2156 98.8 102 20 123/71 99 General Appearance normal appearance, WD/WN Eye Exam - bilateral eye normal exam, bilateral eye PERRL, bilateral eye EOMI Neck normal inspection, non-tender, supple, full range of motion Respiratory Status Yes: trachea midline, chest symmetrical, non tender chest. No: respiratory distress. Lung Sounds bilateral: normal breath sounds, lungs clear. 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 No Comment 00:45am-Upon the re-evaluation patient appears medically stable, clinically improving, resoponding to the Antivert, in no acute distress. Advised patient to follow-up with ENT, Dr. Canada or Dr. Patterson, for discharge instructions. If any worse patient advised return promptly to this, same, emergency room for another re-evaluation. Results/Orders Laboratory Tests 01/22/172244: TSH 1.70, Free T4 Index 9.1, Thyroxine (T4) 10.2, T3 Uptake 36 01/22/172244: Sodium 139, Potassium 4.0, Chloride 103, Carbon Dioxide 28, BUN 11, Creatinine 0.9, Estimated Creat Clear 143, Estimated GFR (MDRD) 68, Glucose 92, Calcium 8.4 L, Total Bilirubin 0.2, AST 14 L, ALT 26, Alkaline Phosphatase 87, Total Protein 7.1, Albumin 3.1 L, Globulin 4.0 H, Albumin/Globulin Ratio 0.8 L, WBC 10.5, RBC 4.49, Hgb 11.1 L, Hct 35.8 L, MCV 79.7 L, RDW 14.6, Plt Count 294, MPV 7.9, Gran % 62.3, Gran # 6.5, Lymphocytes % 29.8, Monocytes % 5.1, Eosinophils % 1.9, Basophils % 0.9, Lymphocytes # 3.1, Monocytes # 0.5, Eosinophils # 0.2, Basophils # 0.1, PUBS MCHC 31.1 L, MCH 24.8 L 01/22/172219: Opiates Screen NEGATIVE, Urine Methadone Screen NEGATIVE, Barbiturates NEGATIVE, Phencyclidine Screen NEGATIVE, Amphetamines Screen NEGATIVE, Benzodiazepines Screen NEGATIVE, Cocaine Screen NEGATIVE, Marijuana (THC) Screen NEGATIVE, Urine Color YELLOW, Urine Appearance CLOUDY, Urine pH 6.0, Ur Specific [place] 1.025, Urine Protein TRACE H, Urine Ketones NEGATIVE, Urine Blood 3+ H, Urine Nitrate NEGATIVE, Urine Bilirubin NEGATIVE, Urine Urobilinogen 0.2, Ur Leukocyte Esterase NEGATIVE, Urine RBC 50-100, Ur Squamous Epith Cells 5-10, Urine Glucose NEGATIVE 01/22/17 2211: POC Glucose 120 H Orders Procedure Date/time Status DIET-NOTHING BY MOUTH 01/[address] HEAD REQ 01/22 2303 Active IV SALINE LOCK 01/22 2223 Active ORTHOSTATIC B/P 01/22 2223 Active FSBS REQUEST BY CARE AREA 01/23 2212 Active FINGERSTICK BLOOD SUGAR 01/22 2211 Complete THYROID PANEL 2 (WITH TSH) 01/22 2203 Complete URINALYSIS/COMPLETE 01/22 2202 Complete URINE 01/22 2202 Complete DRUG ABUSE SCREEN (TRIAGE) 01/22 2202 Complete CBC WITH AUTO DIFF 01/22 2202 Complete CHEM 12 PROFILE 01/22 2202 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 of ischemic chgs, no ectopy, normal QRS, normal [place], normal EKG, no EKG for comparison, non-spec. ST/Twave chgs, ST elevation, ST depression, LBBB, RBBB, ectopy, abnormal Q waves XRAY/CT/US XRAY/CT/US CT head CT interpretation by discussed w/radiologist CT Results normal/NAD, no fracture seen Comment No ICH Departure Departure Time of Disposition 0100 Disposition DC Home or Self Care(routine) Clinical Impression Primary Impression: Labyrinthitis Qualifiers: Laterality: unspecified laterality Qualified Code: H83.09 - Labyrinthitis, unspecified ear Condition STABLE Referrals Yesenia AGOSTO, Tawny Canada MD,Brandon Moreno Patient Instructions DI for Labyrinthitis Additional Instructions Please take the medications prescribed as instructed, alternate Faragher with Zofran as needed for nausea, follow-up with one of the ENT specialist listed below, Dr. Tawny Patterson or Dr. Brandon Canada, within the next [address] Saini today, in the office. Discharge Counseling Counseled pt/family regarding diagnosis, test results, medications/RX, home care, follow up needs Comment Please take the medications prescribed as instructed, alternate Faragher with Zofran as needed for nausea, follow-up with one of the ENT specialist listed below, Dr. Tawny Patterson or Dr. Brandon Canada, within the next [address] Saini today, in the office. Prescriptions Current Visit Scripts MECLIZINE HCL (ANTIVERT 25MG (generic)) 25 MG PO QIDP PRN dizziness #30 TAB ED Critical Care Critical Care No at 1020
[2017-01-23] MEDS ORDERED: MECLIZINE HYDRO25 M2 PO (01:03)
[2017-01-23 01:09] VITALS: BP 122/90
--- NOTE | 2017-01-23 07:33 | RADIOLOGY REPORT PS360 ---
CT HEAD WITHOUT CONTRAST CT BONE WINDOWS included ORDERING PHYSICIAN : Mino Nair MD PATIENT AGE: 46 years GENDER: Female PROCEDURE: Routine axial images headwithout contrast. Brain & bone windows HISTORY: FEELS SPACED OUT confusion mental status change COMPARISON: CT head 10/17/2016 FINDINGS: No acute intracranial findings. No hemorrhage. No mass effect or mass lesion. No subdural nor extra-axial collection. Ventricles & basal cisterns appear satisfactory. Roche & white matter patterns satisfactory. The posterior fossa appear satisfactory and unremarkable. The skull is intact. The visualized portions of the paranasal sinuses are clear. Mastoid air cells, middle ear & IACs are unremarkable. IMPRESSION: No acute intracranial findings. Stable CT head Since prior CT head October 2016
== END 2017-01-23 01:11 | disposition home or self-care (01) ==
LOC: ER 21:52
PROVIDERS: Emergency Medicine
DX: H83.09 Labyrinthitis, unspecified ear (principal); J45.909 Unspecified asthma, uncomplicated; I10 Essential (primary) hypertension

== ENCOUNTER 2017-02-06 10:34 | Outpatient (CLI) | payer BC ==
[2017-02-06] VITALS (7 sets, daily range): BP systolic 110–129; BP diastolic 67–74
[~2017-02-06 10:34] MED LIST changes: +MECLIZINE HYDRO25 M2 PO
== END 2017-02-06 14:05 | disposition home or self-care (01) ==
LOC: COP 10:34
DX: K29.70 Gastritis, unspecified, without bleeding (principal); E86.0 Dehydration; R11.2 Nausea with vomiting, unspecified
CPT/HCPCS: J2405

== ENCOUNTER → 2017-02-15 | Outpatient (CLI) | payer BC ==
--- NOTE | 2017-02-16 14:28 | RADIOLOGY REPORT PS360 ---
PROCEDURE: 2-D M-mode and color Doppler study INDICATIONS FOR THE TEST: Chest pain X COPDX Heart Murmur Tobacco Smoking Palpitations Fatigue SyncopeX EdemaX HypertensionXDiabetes Mellitus Rheumatic Fever SOBXDOE ObesityXHyperlipidemia Family History HD Additional History LOOP RECORDER,PHTN PATIENT INFORMATION HEIGHT: 63 WEIGHT:250 GENDER: Female B/P:106/52 2-D/M-MODE INTERPRETATION: 2-D MEASUREMENTS OBSERVED VALUES IN CMS Right Ventricular Dimension (RVDd) 2.5 Interventricular Septum (Thickness)(IVsd) 1.3 Left Ventricular Internal Dimensions(LVIDd) 4.5 Left Ventricular Posterior Wall (Thickness)(LVPWd) 1.7 Aortic Root 3.2 Aortic Cusp Separation 2.2 Left Atrial Dimensions (LAD) 4.6 2D 1. Left atrium is mildly enlarged, left ventricle is normal size, there is mild concentric left ventricular hypertrophy, visually estimated ejection fraction 55% with no obvious regional wall motion abnormality. 2. The right atrium and right ventricle are mildly enlarged with normal contractility. 3. The aortic valve is minimally thickened and fibrosed. 4. The mitral and tricuspid valvular grossly normal. 5. The pulmonic valve is poorly visualized. 6. No significant pericardial effusion noted. DOPPLER INTERROGATION: Doppler interrogation of the aortic, mitral and tricuspid valvular presence of mild mitral and tricuspid regurgitation, tricuspid and jet velocity insufficient for calculation of the right ventricular systolic pressure, grade 1 diastolic dysfunction seen without tissue Doppler evidence of raised left atrial pressure. CONCLUSION: 1. Mildly enlarged left atrium, normal left ventricular size, mild concentric left ventricular hypertrophy, visually estimated ejection fraction 55% with no obvious regional wall motion abnormality, grade 1 diastolic dysfunction seen without tissue Doppler evidence of raised left atrial pressure. 2. Mildly enlarged right atrium and right ventricle, contractility of the right ventricle is normal. 3. Mild mitral and tricuspid regurgitation, tricuspid and jet velocity insufficient calculation of the right ventricular systolic pressure. 4. No significant pericardial effusion noted.
== END ==
LOC: RT 14:59
DX: R55 Syncope and collapse (principal); J40 Bronchitis, not specified as acute or chronic; I10 Essential (primary) hypertension; I27.20 Pulmonary hypertension, unspecified; E66.9 Obesity, unspecified; K21.9 Gastro-esophageal reflux disease without esophagitis; R07.1 Chest pain on breathing

== ENCOUNTER → 2017-02-27 | Outpatient (CLI) | payer BC | LOC: SL 19:38 | DX: G47.10 Hypersomnia, unspecified (principal); I10 Essential (primary) hypertension; R06.83 Snoring; E66.9 Obesity, unspecified ==

== ENCOUNTER → 2017-03-06 | Outpatient (CLI) | payer BC ==
[2017-03-06 16:35] LABS: BUN 9 mg/dL (7-18)
[2017-03-06 16:44] LABS: GFR (ESTIMATED) 78 ML/MIN (59-)
== END ==
LOC: LAB 12:01
PROVIDERS: Internal Medicine Cardiovascular Disease
DX: R07.89 Other chest pain (principal); R06.02 Shortness of breath; I10 Essential (primary) hypertension; I27.20 Pulmonary hypertension, unspecified; K21.9 Gastro-esophageal reflux disease without esophagitis; E66.9 Obesity, unspecified